=== PATIENT | female | born 1995 | race Hispanic/Latino ===

== ENCOUNTER → 2023-05-10 08:22 | Outpatient (CLI) | payer OTHER, SELFPAY ==
--- NOTE | 2023-05-10 08:24 | DI.US.S_ITS ---
PROCEDURE: US OB <= 14 WEEKS FETUS INDICATIONS: DATES OUTSIDE/PRIOR DATING DATA: Last menstrual period (LMP): 02/22/23. LMP-based estimated date of delivery (BRITTON): 11/29/23. First dating scan (date and location): 05/10/23, current study. Estimated date of delivery (BRITTON) from first dating scan: 12/01/23. TECHNIQUE: Real-time scanning was performed of the fetus and maternal pelvic organs, with image documentation. Endovaginal scanning was also performed to better visualize the fetus and maternal ovaries. COMPARISON: None. FINDINGS: An intrauterine is present including a single fetus with an average crown-rump length of 38 mm corresponding to a 10 week five day plus or minus seven day gestation. There is detectable cardiac activity in the fetus at a rate of 169 beats per minute. A normal yolk sac is present. There is an unfused amnion. There is no subchorionic hemorrhage. The maternal uterus is anteverted. The cervix is closed. There is no pathologic free pelvic fluid. The ovaries were not seen. IMPRESSION: Single living intrauterine with a gestational age by ultrasound of 10 weeks five days plus or minus seven days. This is in good agreement with the clinically assigned gestational age. We strive to produce accurate, complete, and clear reports of imaging services. To assist us in improving patient care, this report was composed using standard report templates and voice recognition software. Therefore, it may contain abnormal punctuation, insertions and/or omissions. Occasional wrong-word or sound-alike substitutions may occur. Though we review the report and make efforts to correct it, we do recommend that the report be read carefully in proper context to recognize any text inaccuracies. Dictated by: Stephanie Salas M.D. on 05/10/2023 at 15:49 Approved by: Stephanie Salas M.D. on 05/10/2023 at 15:51
== END ==
LOC: US 08:24
PROVIDERS: Referring Provider Obstetrics & Gynecology; Visit Provider Obstetrics & Gynecology
DX: Z34.91 Encounter for supervision of normal pregnancy, unspecified, first trimester (principal); Z3A.10 10 weeks gestation of pregnancy
CPT/HCPCS: 76801; 76817

== ENCOUNTER 2023-05-23 10:06 | Emergency (ER) | payer OTHER, SELFPAY ==
[2023-05-23] VITALS (13 sets, daily range): BP systolic 103–127; BP diastolic 63–79; PULSE 63–97; RESP 16–18; TEMP 36.8; O2SAT 94–100; BMI 43.9
--- NOTE | 2023-05-23 10:15 | ED.GENADULT ---
HPI - General Adult General Chief complaint: Syncope Stated complaint: syncope, 12wks Time Seen by Provider: 05/23/23 10:11 History of Present Illness HPI narrative: 27-year-old female with history of diverticulosis, syncope presents with syncopal episode. She states she is 12 weeks . She states during her last , she had episodes of syncope with extensive evaluation, including inpatient monitoring and what sounds like a Holter monitor without clear cause. She has been doing well recently in the setting of a new , though today on sitting up and standing, felt lightheaded. Her caught her when she passed out briefly, without trauma. She felt her heart beating quickly and had nausea during this but denies any other new symptoms. No chest pain, shortness of breath, head or neck or back or flank or abdominal pain, vaginal discharge or bleeding or other loss of fluids, red or black in stool, diarrhea or constipation, dysuria, hematuria, urinary frequency, fevers or chills. Her mother suddenly in middle age and she has not sure why, but she denies any known history of family dysrhythmias. No other new concerns currently. She currently feels comfortable. She states neurology told her that they did not think this was a neurological problem. Per chart review, she has a seen by Ob locally with Dr. Baum, with history of syncopal episodes evaluated by Neurology. She has history of migraines, hypothyroidism, eczema. She had a ultrasound May 10 showing intrauterine . Related Data Home Medications Medication Instructions Recorded Confirmed cholecalciferol (vitamin D3) 25 25 mcg PO DAILY 04/04/23 04/04/23 mcg (1,000 unit) capsule loratadine 10 mg tablet 10 mg PO DAILY 04/04/23 04/04/23 montelukast 10 mg tablet 10 mg PO DAILY 04/04/23 04/04/23 vit no.95-ferrous 1 tab PO DAILY 04/04/23 04/04/23 fumarate 28 mg-folic acid 800 mcg tablet ( Multivitamins) Allergies Allergy/AdvReac Type Severity Reaction Status Date / Time pineapple Allergy Intermediate Swelling Verified 05/23/23 10:27 of Lip/Tongue/Throat Review of Systems Review of Systems Narrative: Constitutional: no fever, no chills Eyes: no visual disturbance, no discharge Ears, Nose, Mouth, Throat: no rhinorrhea, no sore throat Cardiovascular: no chest pain, + palpitations Respiratory: no cough, no shortness of breath Gastrointestinal: no abdominal pain, no vomiting, no diarrhea Genitourinary: no dysuria, no hematuria Musculoskeletal: no back pain, no neck stiffness Skin: no rash, no wound Neurological: no focal weakness, no focal numbness Patient History Medical History (Updated 05/23/23 @ 12:31 by Pan Cabrales MD) Hypothyroidism Migraine without aura Eczema Environmental allergies Surgical History (Updated 04/04/23 @ 10:05 by Martha Zamarripa, MICHELE) [place] teeth extracted (~2021) Family History (Updated 04/04/23 @ 10:35 by Martha Zamarripa RN) Father Diabetes mellitus Mother Anemia Obesity Cardiac anomaly Grandmother Diabetes mellitus Sister Cerebral palsy Social History marital status: number of children: 1 household members: spouse and children lives independently: Yes caregiver/support person: Yes housing: [facility]) pets and animals: Yes (dog) education level: high school occupational status: employed (childcare) current occupational exposures/hazards: No special nicole needs: No travel history: recent ([place]) seatbelt use: always water heater temp set < 120 deg: Yes working smoke detector in home: Yes fire extinguisher in home: No carbon monox detector in home: Yes firearms in home: Yes firearms unloaded and locked: Yes do you feel safe at home: Yes Smoking Status: Former smoker second hand exposure: No alcohol intake: former (on rare occasion when not ) substance use type: does not use during the past year weight has: decreased > 10 lbs well-balanced diet: about half the time daily servings fruits/ve-4 caffeine: Yes (occasional te) Type(s) of exercise: aerobic and weight lifting Smoking Status: Never smoker Exam Narrative Exam Narrative: Const: no acute distress, non toxic appearing; calm, conversant, pleasant Eyes: PERRLA, EOMI ENT: mucous membranes moist; no goiter Neck: supple, non-tender Resp: no respiratory distress, clear to auscultation bilaterally Card: regular rate and rhythm, no murmurs Abd: non tender diffusely, no rigidity or rebound or guarding; small palpable uterine fundus Back: no T or L spine tenderness, no CVA tenderness bilaterally Extrem: no deformities, no swelling bilateral lower extremities, 2+ distal pulses all extremities Neuro: ANOx4. slab lifting supervisor 2-12 intact. No rotatory or vertical nystagmus. Normal tone all extremities. Sensation intact to light touch all extremities. No ankle clonus bilaterally. 5/5 motor strength all extremities. Normal FNF BUE; normal heel-self test BLE. No pronator drift. No dysarthria. No neglect. Grossly normal cognition. Skin: no rash, warm and dry Initial Vital Signs Initial Vital Signs: Vital Signs Pulse Rate 97 H 05/23/23 10:12 Pulse Oximetry 99 05/23/23 10:12 Course Course Course Narrative: This patient presents with history consistent with syncope that appears to be recurrent over time, in the setting of prior inpatient and neurologic evaluations per chart and patient. She is currently comfortable, fully neurovascularly intact with no symptoms. This sounds most consistent with orthostatic hypotension or vasovagal reaction, with cardiac dysrhythmia considered but seeming much less likely in the setting of her history and exam as above. She does however have a family history of potential sudden , accordingly, I do feel that regardless of workup today, she should obtain cardiology referral. Currently, she shows no evidence of stroke, intra-abdominal infection or bleeding, arrhythmia, infection, or any neurovascular deficits. I am nonetheless obtain EKG, CBC, CMP, TSH, troponin, urinalysis and will closely reassess. Note she has known IUP. EKG NSR without acute ischemia or immediately concerning interval prolongation. No WPW, Long QT, Brugada, HOCM. No recent for comparison. Note patient has no chest pain or shortness of breath, and this is in the setting of recurring history of prior syncope as well. CBC reassuring, no leukocytosis or anemia or thrombocytopenia. Urinalysis reassuring, no bacteria. Troponin within normal limits; we will trend this. Chemistry with borderline hyponatremia, reassuring renal function, reassuring LFTs, overall reassuring. TSH mildly low. I am recommending to patient she pursue further thyroid testing outpatient. She is not currently tachycardic and appears hemodynamically stable. Repeat EKG remains reassuring, no acute ischemia or immediately concerning interval prolongation, similar to prior. Repeat troponin reassuring. Patient remains stable. She appears appropriate for discharge with close follow up. Vasovagal or orthostatic etiology still possible. No current evidence of cardiac dysrhythmia or any other new symptoms. We discuss workup findings for follow up, including but not limited to TSH. She is able to follow up on this per her report. Repeat exam and vital signs reassuring. She is benign abdomen, no chest pain, no shortness of breath, no current palpitations. Questions answered. Plan reviewed. Patient discharged in stable condition. Orders Ordered: ED Orders 05/23/23 10:17 EKG-12 Lead Stat 05/23/23 10:35 Urinalysis and Microscopic Stat 05/23/23 10:40 CBC Auto Diff [Complete Blood Count AUTO DIFF] Stat CMP [Comprehensive Metabolic Panel] Stat TSH [Thyroid Stimulating Hormone] Stat Troponin I Stat 05/23/23 11:58 EKG-12 Lead Stat 05/23/23 12:56 Troponin I Stat Vital Signs Vital signs: Vital Signs - 8 hr 05/23/23 10:12 05/23/23 10:13 05/23/23 10:13 Temperature Pulse Rate 97 H 72 Respiratory Rate Blood Pressure 114/75 Pulse Oximetry 99 100 Oxygen Delivery Method 05/23/23 10:21 05/23/23 10:35 05/23/23 10:36 Temperature 98.3 F Pulse Rate 71 82 76 Respiratory Rate 18 Blood Pressure 114/75 Pulse Oximetry 100 100 100 Oxygen Delivery Method Room Air 05/23/23 10:36 05/23/23 11:00 05/23/23 11:00 Temperature Pulse Rate 77 Respiratory Rate Blood Pressure 123/73 127/79 Pulse Oximetry 99 Oxygen Delivery Method 05/23/23 11:33 05/23/23 11:35 05/23/23 11:35 Temperature Pulse Rate 87 72 Respiratory Rate Blood Pressure 107/64 Pulse Oximetry 94 100 Oxygen Delivery Method 05/23/23 12:00 05/23/23 12:00 05/23/23 12:30 Temperature Pulse Rate 71 73 Respiratory Rate Blood Pressure 110/70 Pulse Oximetry 100 100 Oxygen Delivery Method 05/23/23 12:38 05/23/23 12:38 05/23/23 13:00 Temperature Pulse Rate 73 Respiratory Rate Blood Pressure 103/63 107/68 Pulse Oximetry 100 Oxygen Delivery Method 05/23/23 13:00 05/23/23 13:30 05/23/23 13:30 Temperature Pulse Rate 77 63 Respiratory Rate 16 Blood Pressure 106/68 Pulse Oximetry 100 100 Oxygen Delivery Method Room Air Medical Decision Making Lab Data 05/23/23 10:40 05/23/23 10:40 Labs: Lab Results 05/23/23 05/23/23 05/23/23 Range/Units 10:35 10:40 12:56 WBC 8.9 (4.5-11.0) X10^3/uL RBC 4.50 (4.0-5.2) X10^6/uL Hgb 13.3 (12.0-16.0) g/dL Hct 38.7 (36-46) % MCV 85.9 (80-100) fL MCH 29.5 (26-34) PG MCHC 34.4 (30-36) % RDW 12.6 (11.6-14.8) % Plt Count 319 (150-400) X10^3/uL Neut % (Auto) 59.4 (50-75) % Lymph % (Auto) 25.7 (25-40) % Summers % (Auto) 12.7 (3-14) % Eos % (Auto) 1.2 L (2-4) % Baso % (Auto) 1.0 (0-2) % Neut # (Auto) 5300 (0903-6174) /uL Lymph # (Auto) 2300 (2612-2107) /uL Summers # (Auto) 1100 H (0-900) /uL Eos # (Auto) 100 (0-450) /uL Baso # (Auto) 100 (0-100) /uL Sodium 136 L (137-145) mmol/L Potassium 4.6 (3.4-5.1) mmol/L Chloride 107 (98-107) mmol/L Carbon Dioxide 23 (22-32) mmol/L BUN 7 (7-17) mg/dL Creatinine 0.45 L (0.52-1.04) mg/dL Estimated GFR > 60 (>60) mL/min BUN/Creatinine Ratio 15.6 (6-22) Glucose 85 (70-100) mg/dL Calcium 9.2 (8.4-10.2) mg/dL Total Bilirubin 0.9 (0.2-1.3) mg/dL AST 36 (14-36) IU/L ALT 11 (<35) IU/L Alkaline Phosphatase 46 (38-126) U/L Troponin I 0.016 0.015 (0.01-0.034) ng/mL Total Protein 8.5 H (6.3-8.2) g/dL Albumin 4.1 (3.5-5.0) g/dL Globulin 4.4 H (1.7-4.1) g/dL Albumin/Globulin Ratio 0.9 L (1.0-2.8) TSH 0.428 L (0.47-4.68) uIU/mL Urine Color Yellow Urine Appearance Clear Urine pH 5.5 (4.5-8.0) Ur Specific [place] 1.010 (1.000-1.035) Urine Protein Negative (Negative) Urine Glucose (UA) Negative (Negative) g/dL Urine Ketones Negative (NEGATIVE) Urine Occult Blood Negative (Negative) Urine Nitrate Negative (Negative) Urine Bilirubin Negative (NEGATIVE) Urine Urobilinogen 0.2 (0.2) E.U./dL Ur Leukocyte Esterase Negative (NEGATIVE) Urine RBC None seen (0-5/HPF) Urine WBC None seen (0-5/HPF) Ur Squamous Epith Cells None seen (0-5/HPF) Urine Bacteria None seen (None) Ur Culture Indicated? Cult not indicated Vol Urine Centrifuged 10ml (spun) Discharge Plan Departure Patient Disposition: Home Clinical Impression: Syncope Instructions: DI for Syncope in Adults (Fainting) Activity Restrictions/Additional Instructions: It was a pleasure taking care of you today. It is important to fully read and understand the below. Please ask us if you have any questions. Your testing here is overall reassuring. I do agree should follow up with both primary care and Cardiology. Please see a doctor within 3-5 days to be reassessed. Please follow up on your low TSH with your primary doctor. I am sending a cardiology referral as well as discussed. No tests or assessments are perfect, and your condition could change management expert time. If your symptoms change or worsen, it is very important you immediately seek medical care. If you have any new or worsening pain, lightheadedness or passing out, feeling your heart beating funny, shortness of breath, fever, vomiting, confusion, numbness, weakness, or anything else that concerns you, please immediately seek medical care. If you have been prescribed any medications: please read the drug package inserts on how to properly use the medication and any potential side effects. If you had labs (blood tests) or imaging (CT scan or x-rays) done during your visit: please follow up on the results of these with your primary care doctor, as discussed. In addition, please know the results we received today may be preliminary. Our usual practice is to follow up on tests within a few days of a patient's discharge from the Emergency Department and notify you of any changes. These may lead to changes to your treatment plan. However, the best way to obtain and interpret these test results is through your Primary Care Provider. If you need to update your contact information, please stop by the front end application developer and alert the Registration personnel before you leave the Emergency Department. Thank you for the opportunity to participate in your healthcare. We are always here and happy to see you in the future. Prescriptions: No Action loratadine 10 mg tablet 10 mg PO DAILY PNV cmb#95-ferrous fumarate-FA [ Multivitamins] 28 mg iron- 800 mcg tablet 1 tab PO DAILY cholecalciferol (vitamin D3) 25 mcg (1,000 unit) capsule 25 mcg PO DAILY montelukast 10 mg tablet 10 mg PO DAILY Referrals: Emilee Perrin DO [Physician] - (syncope work up in ER) Provider,Anisha JAFFE [Primary Care Provider] - Pan Cabrales MD [Emergency Provider] - Stand Alone Forms: Patient Portal/API, Work Release Note
[2023-05-23 11:04] LABS: Appearance Urine UA CLEAR; Bilirubin Urine UA NEGATIVE (NEGATIVE); Color Urine UA YELLOW; Glucose Urine UA NEGATIVE (Negative); Ketones Urine UA NEGATIVE (NEGATIVE); Leukocyte Esterase Urine UA NEGATIVE (NEGATIVE); Nitrite Urine UA NEGATIVE (Negative); Occult Blood Urine UA NEGATIVE (Negative); Protein Urine UA NEGATIVE (Negative); Urobilinogen Urine UA 0.2 E.U./dL (0.2)
[2023-05-23 11:04] LABS: Add Manual Diff / Slide Review NO; Basophils Absolute Auto 100 /uL (0-100); Eosinophils Absolute Auto 100 /uL (0-450); Eosinophils Percent Auto 1.2 % (2-4); Hematocrit 38.7 % (36-46); Hemoglobin 13.3 g/dL (12.0-16.0); Lymphocytes Absolute Auto 2300 /uL (1100-4500); Lymphocytes Percent Auto 25.7 % (25-40); Mean Corpuscular HGB Conc 34.4 % (30-36); Mean Corpuscular Hemoglobin 29.5 PG (26-34); Mean Corpuscular Volume 85.9 fL (80-100); Monocytes Absolute Auto 1100 /uL (0-900); Monocytes Percent Auto 12.7 % (3-14); Neutrophils Absolute Auto 5300 /uL (1500-7000); Neutrophils Percent Auto 59.4 % (50-75); Platelet Count 319 X10^3/uL (150-400); Red Cell Distribution Width 12.6 % (11.6-14.8); White Blood Cell Count 8.9 X10^3/uL (4.5-11.0)
[2023-05-23 11:05] LABS: Urine Volume 10mL (spun); pH Urine UA 5.5 (4.5-8.0)
[2023-05-23 11:08] LABS: Bacteria Urine None Seen; Culture Indicated Urine Cult Not Indicated; RBC Urine None Seen (0-5/HPF); Squamous Epithelial Cell Urine None Seen (0-5/HPF); WBC Urine None Seen (0-5/HPF)
[2023-05-23 11:24] LABS: Troponin I 0.016 ng/mL (0.01-0.034)
--- NOTE | 2023-05-23 11:26 | PC.NURSE ---
Patient is currently asymptomatic but reports history of syncopal episodes which correlate with going to the bathroom or needing to vomit or defecate, possibly linked to vasovagal issues.
[2023-05-23 11:54] LABS: Alanine Aminotransferase 11 IU/L (<35); Albumin 4.1 g/dL (3.5-5.0); Albumin Globulin Ratio 0.9 (1.0-2.8); Alkaline Phosphatase 46 U/L (38-126); Aspartate Aminotransferase 36 IU/L (14-36); BUN Creatinine Ratio 15.6 (6-22); Bilirubin Total 0.9 mg/dL (0.2-1.3); Blood Urea Nitrogen 7 mg/dL (7-17); Calcium 9.2 mg/dL (8.4-10.2); Carbon Dioxide 23 mmol/L (22-32); Chloride 107 mmol/L (98-107); Estimated Glomerular Filt Rate > 60 mL/min (>60); Globulin 4.4 g/dL (1.7-4.1); Glucose 85 mg/dL (70-100); HEMOLYSIS 121 (0-50); Potassium 4.6 mmol/L (3.4-5.1); Sodium 136 mmol/L (137-145); Total Protein 8.5 g/dL (6.3-8.2)
[2023-05-23 12:28] LABS: Thyroid Stimulating Hormone 0.428 uIU/mL (0.47-4.68)
[2023-05-23 13:38] LABS: Troponin I 0.015 ng/mL (0.01-0.034)
== END 2023-05-23 14:01 | disposition home or self-care (01) ==
PROVIDERS: Emergency Provider Emergency Medicine
DX: O26.91 Pregnancy related conditions, unspecified, first trimester (principal); R55 Syncope and collapse; R07.9 Chest pain, unspecified; Z3A.12 12 weeks gestation of pregnancy
CPT/HCPCS: 36415; 80053; 81001; 84443; 84484; 85025; 93005; 93010; 99284

== ENCOUNTER → 2023-06-01 11:06 | Outpatient (CLI) | payer OTHER, SELFPAY ==
[2023-06-01 11:48] LABS: Add Manual Diff / Slide Review NO; Basophils Absolute Auto 0 /uL (0-100); Basophils Percent Auto 0.4 % (0-2); Eosinophils Absolute Auto 100 /uL (0-450); Eosinophils Percent Auto 0.9 % (2-4); Hematocrit 35.4 % (36-46); Hemoglobin 12.3 g/dL (12.0-16.0); Lymphocytes Absolute Auto 2100 /uL (1100-4500); Lymphocytes Percent Auto 26.7 % (25-40); Mean Corpuscular HGB Conc 34.7 % (30-36); Mean Corpuscular Hemoglobin 29.4 PG (26-34); Mean Corpuscular Volume 84.8 fL (80-100); Monocytes Absolute Auto 800 /uL (0-900); Monocytes Percent Auto 10.2 % (3-14); Neutrophils Absolute Auto 4800 /uL (1500-7000); Neutrophils Percent Auto 61.8 % (50-75); Platelet Count 289 X10^3/uL (150-400); Red Blood Cell Count 4.17 X10^6/uL (4.0-5.2); Red Cell Distribution Width 12.9 % (11.6-14.8); White Blood Cell Count 7.7 X10^3/uL (4.5-11.0)
[2023-06-01 12:28] LABS: Free T4, Direct Thyroxine 1.06 ng/dL (0.78-2.19)
[2023-06-01 12:42] LABS: Thyroid Stimulating Hormone 0.372 uIU/mL (0.47-4.68)
[2023-06-02 19:59] LABS: HIV 1 & 2 Ab/Ag 4th Gen Combo NEGATIVE (NEGATIVE); Hep C Virus Ab w/Reflex Quant NEGATIVE s/c (NEGATIVE); Hepatitis B Surface Antigen NEGATIVE s/c (NEGATIVE); Rubella Antibody IgG 60.3 IU/mL (>15)
[2023-06-03 03:36] LABS: RPR Screen Non Reactive (Non Reactive)
[2023-06-03 09:47] LABS: Varicella IgG Antibody 308 index (Immune >165)
== END ==
PROVIDERS: Referring Provider Obstetrics & Gynecology; Visit Provider Obstetrics & Gynecology
DX: Z86.39 Personal history of other endocrine, nutritional and metabolic disease (principal); E03.9 Hypothyroidism, unspecified
CPT/HCPCS: 36415; 80055; 84439; 84443; 86787; 86803; 86850; 86900; 86901; 87086; 87389

== ENCOUNTER → 2023-06-07 15:03 | Outpatient (CLI) | payer OTHER, SELFPAY ==
[2023-06-07 20:00] LABS: Urine N gonorrhoeae NOT DETECTED
[2023-06-07 20:16] LABS: Urine Chlamydia NOT DETECTED
== END ==
PROVIDERS: Visit Provider Obstetrics & Gynecology
DX: Z34.82 Encounter for supervision of other normal pregnancy, second trimester (principal); R82.998 Other abnormal findings in urine; Z3A.15 15 weeks gestation of pregnancy
CPT/HCPCS: 87086; 87491; 87591

== ENCOUNTER → 2023-07-12 10:21 | Outpatient (CLI) | payer OTHER, SELFPAY ==
--- NOTE | 2023-07-12 10:22 | DI.US.S_ITS ---
PROCEDURE: US OB >= 14 WEEKS FETUS INDICATIONS: Anatomy Scan OUTSIDE/PRIOR DATING DATA: Last menstrual period (LMP): 02/22/2023 LMP-based estimated date of delivery (BRITTON): 11/29/2023 First dating scan (date and location): 05/10/2023 Estimated date of delivery (BRITTON) from first dating scan: 12/01/2023 The calculations are made using the clinical BRITTON of 11/29/2023 TECHNIQUE: Real-time scanning was performed of the fetus, with image documentation and biometric measurements. Endovaginal scanning: Not performed COMPARISON: [facility], OB <= 14 WEEKS FETUS, 05/10/2023, 8:47. FINDINGS: General: A single living intrauterine gestation is present. Presentation: Breech Placenta: Placental position is anterior, without previa. Amniotic fluid index: 13.5 cm, normal range is 5-24 cm. Single deepest vertical pocket is 4.3 cm. heart rate: 157 beats per minute. Maternal cervical canal: 5.2 cm long. Normal lower limit is 2.5 cm. biometrics: Biparietal diameter: 4.5 cm, 19 weeks 3 days Head circumference: 16.3 cm, 19 weeks 0 days Abdominal circumference: 13.3 cm, 18 weeks 6 days Femur length: 2.8 cm, 18 weeks 5 days Clinically estimated gestational age: 20 weeks 0 days Composite gestational age from present scan: 19 weeks 0 days Estimated weight and percentile: 258 g, 4th percentile Anatomic survey: Neuro: Ventricles are non-dilated at less than 10 mm. Cisterna magna is normal at 3-11 mm. Cerebellum is normal in size and morphology. Nuchal skin fold: Not evaluated. Face: Facial profile appears normal. Nose/lips not visualized. Spine: Spine is not optimally visualized. Heart: heart and ventricular outflow tracts are not well visualized. Diaphragm: Diaphragm is intact. Stomach: Left-sided stomach is present. Kidneys: No hydronephrosis. Normal is less than 5 mm in 2nd trimester, less than 7 mm in 3rd trimester. Cord: 3-vessel cord has orthotopic insertion. Bladder: Normal in size. Extremities: All 4 extremities identified. IMPRESSION: 1. Single live intrauterine . 2. Estimated weight is at the 4th percentile for clinical gestational age. Recommend clinical correlation and follow-up to exclude growth restriction. 3. Limited visualization of the posterior fossa, nuchal fold, nose/lips, spine, heart and ventricular outflow tracts. Recommend follow-up exam. 4. anatomic survey is otherwise within normal limits. Approved by: Christofer Cancino M.D. on 07/12/2023 at 14:51
== END ==
PROVIDERS: Referring Provider Obstetrics & Gynecology; Visit Provider Obstetrics & Gynecology
DX: Z34.82 Encounter for supervision of other normal pregnancy, second trimester (principal); Z3A.19 19 weeks gestation of pregnancy
CPT/HCPCS: 76811

== ENCOUNTER → 2023-08-02 10:11 | Outpatient (CLI) | payer OTHER, SELFPAY ==
--- NOTE | 2023-08-02 10:12 | DI.US.S_ITS ---
PROCEDURE: US OB FOLLOW UP INDICATIONS: not able to see all structures on first scan OUTSIDE/PRIOR DATING DATA: Last menstrual period (LMP): February 22, 2023. LMP-based estimated date of delivery (BRITTON): November 29, 2023. First dating scan (date and location): May 10, 2023. Estimated date of delivery (BRITTON) from first dating scan: December 01, 2023. The calculations are made using the ultrasound BRITTON of November 29, 2023. TECHNIQUE: Real-time scanning was performed of the fetus, with image documentation and biometric measurements. Endovaginal scanning: Not performed COMPARISON: [facility], , OB >= 14 WEEKS FETUS, 07/12/2023, 10:32. FINDINGS: General: A single living intrauterine gestation is present. Presentation: Vertex. Placenta: Placental position is anterior , without previa. Amniotic fluid index: 16.8 cm, normal range is 5-24 cm. Single deepest vertical pocket is 5.1 cm. heart rate: Not recorded Maternal cervical canal: 3.6 cm long. Normal lower limit is 2.5 cm. biometrics: Biparietal diameter: 5.4 cm, 22 weeks, 3 days Head circumference: 19.6 cm, 21 weeks, 6 days Abdominal circumference: 17.1 cm, 22 weeks, 1 day Femur length: 4.0 cm, 22 weeks, 6 days Clinically estimated gestational age: 22 weeks 5 days Composite gestational age from present scan: 22 weeks 2 days Estimated weight and percentile: 500 g, 28% Anatomic survey: Face: There is a questionable defect within the upper lip suggesting the presence of a cleft palate. This is incompletely characterized. Heart: 4-chambered heart is present, the outflow tracts were not visualized. Stomach: Left-sided stomach is present. Cord: 3 vessel cord has orthotopic insertion. IMPRESSION: 1. Limited study. There is a questionable defect within the upper lip. Cleft palate cannot be excluded and further characterization is warranted. 2. Poor characterization of the ventricular outflow tracks. 3. Composite gestational age of 22 weeks, 2 days which is concordant with dates by initial scan. We strive to produce accurate, complete, and clear reports of imaging services. To assist us in improving patient care, this report was composed using standard report templates and voice recognition software. Therefore, it may contain abnormal punctuation, insertions and/or omissions. Occasional wrong-word or sound-alike substitutions may occur. Though we review the report and make efforts to correct it, we do recommend that the report be read carefully in proper context to recognize any text inaccuracies. Dictated by: Odessa Saleh M.D. on 08/10/2023 at 8:44 Approved by: Odessa Saleh M.D. on 08/10/2023 at 8:57
== END ==
LOC: US 10:12
PROVIDERS: Referring Provider Obstetrics & Gynecology; Visit Provider Obstetrics & Gynecology
DX: Z34.82 Encounter for supervision of other normal pregnancy, second trimester (principal); Z3A.22 22 weeks gestation of pregnancy
CPT/HCPCS: 76816

== ENCOUNTER → 2023-08-23 09:03 | Outpatient (CLI) | payer OTHER, SELFPAY ==
[2023-08-23 11:17] LABS: Hematocrit 34.3 % (36-46); Hemoglobin 11.7 g/dL (12.0-16.0)
[2023-08-23 11:39] LABS: GTT (PREG) 1 Hour PP 50gm Dose 151 mg/dL (76-139)
== END ==
PROVIDERS: Referring Provider Obstetrics & Gynecology; Visit Provider Obstetrics & Gynecology
DX: Z34.82 Encounter for supervision of other normal pregnancy, second trimester (principal); Z3A.26 26 weeks gestation of pregnancy
CPT/HCPCS: 82950; 85014; 85018

== ENCOUNTER → 2023-09-07 07:48 | Outpatient (CLI) | payer OTHER, SELFPAY ==
[2023-09-07 10:29] LABS: Glucose Fasting Gestational 107 mg/dL (76-95)
[2023-09-07 10:54] LABS: Glucose 1 Hour Gest 205 mg/dL (76-180)
[2023-09-07 11:31] LABS: Glucose Tol Interp,Gestational INTERPRETATION
[2023-09-07 12:10] LABS: Glucose 2 Hour Gest 151 mg/dL (76-155)
[2023-09-07 12:31] LABS: Glucose 3 Hour Gest 167 mg/dL (76-140)
== END ==
PROVIDERS: Referring Provider Obstetrics & Gynecology; Visit Provider Obstetrics & Gynecology
DX: Z34.80 Encounter for supervision of other normal pregnancy, unspecified trimester (principal); R73.09 Other abnormal glucose
CPT/HCPCS: 36415; 82951; 82952

== ENCOUNTER → 2023-09-08 09:30 | Outpatient (CLI) | payer OTHER, SELFPAY ==
--- NOTE | 2023-09-08 11:18 | DIAB.GDA ---
Initial Gestational Diabetes Assessment Name: Jeane Encarnacion Date: 09/08/23 Time: 930-11a Dx: Gestational Diabetes Provider: Bautista BRITTON: 11/29/23 Weeks: 28 Jeane presents for initial DM visit. PMH of GDM briefly before term vaginal of daughter 6 years ago per report. Daughter born 6.9#. Reports FH of DM with father and maternal grandmother. Given elevated FBG in OGTT, may benefit from insulin therapy, however her FBG this morning was 88mg/dl. Reports some food insecurity. Just had first WIC visit recently. Next WIC check in October. Some iron deficiency per labs 08/23/23. Has been working on eating more veggies and red meat. Veggies have not been desirable during this per report. Reports h/o diverticular disease. Has questions about diet recs for this. Reports BFing with first child for a couple weeks. States she did not know to wake in the night regularly to nurse and her milk dried up. Wanting to see prior to delivery. Drinks juice with iron supplement. Reports sweet tooth recently, with baking and buying cookies. Diet Recall: 9a: bowl cereal with milk OR waffle with avocado and cherries 12p: 1c rice and chicken sn: nothing or fruit 6p: skip if full OR 1c rice, chicken, veggies 8p: oreos with milk OR 3 lainey chip cookies water: 30oz x 2.5-3, 4-6oz juice with iron supplement Anthropometrics: Ht: 61 Wt: 231# 08/31/23 at OB office Prepregnancy wt: 236# Physical Activity: Reports reduced activity since started due to nausea in first trimester and busy schedule with work in second trimester. Prior to was more active with gym. states she has been trying to walk dog 20 min per day and walks daughter to school daily. Self-Monitoring Blood Glucose: Just started checking BG. Good technique displayed in clinic today. FBG this morning remarkably lower than labs yesterday of 107mg/dl. After breakfast of 15g CHO in range. Last night 1 hour elevated after 20-30g CHO potato with dinner. Date Pre Post Pre Post Pre Post HS 09/06 151 09/07 88 122 Diabetes Medications: None Pertinent Labs: Screen 151 mg/dl; OGTT: 107 H, 205 H, 151, 167 H Nutrition Rx: Carbohydrates: Meal: 45-g lunch and dinner; 30g breakfast Snack: 15-30g Nutrition Diagnosis: Altered nutrition related lab value r/t GDM dx aeb recent OGTT Excessive CHO r/t newly dx GDM and nutrition related knowledge deficit aeb diet recall and OGTT Inconsistent protein intake r/t nutrition knowledge deficit aeb diet recall Intervention: This participant was very receptive. Provided appropriate educational handouts. Discussed the following topics: GDM pathophysiology and impact of hyperglycemia on mom and baby Risk for T2DM for mom and baby in the future Ways to reduce risk T2DM Plate Method, meal timing, carb counting, pairing macronutrients and spreading out CHO for better BG management Blood glucose goals (FBG: <95 and 1 hour <140 mg/dL); importance of checking 4x per day (FBG and pc) Impact of macronutrients on blood glucose Recommended servings for carbohydrates at meals and snacks Brainstormed appropriate meal plan based on her food preferences Insulin demo, in case she needs to start insulin Role of insulin in GDM management Food insecurity and ways to choose affordable foods Label reading Role of physical activity and following provider guidelines for safety Goals: trust evaluation supervisor cheese or nuts when able Check BG 4 x per day Pair CHO and pro at meals/snacks Try to eat q 3-4 hours Follow-up: BRISSA SWARTZ follow-up in one week via messaging BG and two weeks in per son 1:1 visit Tiny Shabazz RDN, SHERIDAN Certified Diabetes Care and Pit Furnace Melter T: [phone] F: [phone] [email or web address] Thank you for this referral
== END ==
PROVIDERS: Referring Provider Obstetrics & Gynecology
DX: O24.419 Gestational diabetes mellitus in pregnancy, unspecified control (principal); Z3A.28 28 weeks gestation of pregnancy; Z71.3 Dietary counseling and surveillance
CPT/HCPCS: 97802

== ENCOUNTER → 2023-09-13 16:56 | Outpatient (CLI) | payer OTHER, SELFPAY ==
--- NOTE | 2023-09-13 17:15 | DIAB.GDFU ---
Follow-up Gestational Diabetes Assessment Name: Jeane Encarnacion Date: 09/13/23 Time: 5-6p Dx: Gestational Diabetes Provider: Bautista BRITTON: 11/29/23 Weeks: 29 Iris presents for GDM f/u. Reports following a very low CHO diet due to elevations with moderate CHO intake. States she cannot eat more than 20-30g per sitting without having an elevation. Endorses 3# weight loss due to diet changes. States she is feeling sick of low carb options,ie avocado, eggs. Brought her bg log and food journal today. BG seems quite variable to food she is eating. Choosing low CHO tortillas, but had a high BG. Chose 1/2c rice and BG was in 130s. May benefit from medication management, though again BG are so variable. Seems like insulin therapy may help her eat more adequately. Self-Monitoring Blood Glucose: States she is able to keep most numbers in range with a very low CHO diet. 2/6 elevated FBG. 2/6 elevated post breakfast. 1/6 elevated post lunch. 2/6 elevated post dinner. Concerns for such a low CHO diet during . Date Pre Post Pre Post Pre Post HS 09/06 151 09/07 88 122 137 182 09/08 104 161 104 98 09/09 97 107 97 121 09/10 78 105 121 129 09/11 88 113 135 95 09/12 88 148 159 Diabetes Medications: None Pertinent Labs: Screen 151 mg/dl; OGTT: 107 H, 205 H, 151, 167 H Intervention: This participant was very receptive. Provided appropriate educational handouts. Discussed the following topics: Recent blood sugar results and impact of food and hormones Review of macronutrient recommendations during Reviewed CGM use and equipment Discussed when to check blood sugars using finger stick Provided education for self-administration of CGM placement Educated patient on alarm settings Discussed equipment disposal Goals: code enforcement supervisor cheese or nuts when able- met Check BG 4 x per day- met Pair CHO and pro at meals/snacks- met Try to eat q 3-4 hours - met Wear CGM x 10 days- new Follow-up: BRISSA SWARTZ follow-up in one week Tiny Shabazz RDN, SHERIDAN Certified Diabetes Care and Certification And Selection Specialist T: [phone] F: [phone] [email or web address] Thank you for this referral
== END ==
PROVIDERS: Referring Provider Obstetrics & Gynecology
DX: O24.419 Gestational diabetes mellitus in pregnancy, unspecified control (principal); Z3A.29 29 weeks gestation of pregnancy; Z71.3 Dietary counseling and surveillance
CPT/HCPCS: G0108

== ENCOUNTER → 2023-09-22 08:24 | Outpatient (CLI) | payer OTHER, SELFPAY ==
--- NOTE | 2023-09-22 08:28 | DIAB.GDFU ---
Follow-up Gestational Diabetes Assessment Name: Jeane Encarnacion Date: 09/22/23 Time: 900-060a Dx: Gestational Diabetes Provider: Bautista BRITTON: 11/29/23 Weeks: 30 Jeane presents for GDM f/u. Still on very low CHO diet for , not meeting BOILER INSTALLER of 175g per day. Wearing CGM. Has had a few elevations postprandial, mostly r/t eating out sushi or wings. Started Metformin yesterday with rx for 500mg BID. Plan to increase prn per OB notes, then insulin if needed. Most meals <30g CHO, which keeps her BG in range. Some meals of 40g seem to work and would be more ideal for overall nutrition status. Weight gain going well, 1# over 3 weeks per last OB visit. Today she brought her BG log book and food journal for review. Anthropometrics: Ht: 61 Wt: 232# 09/21/23 at OB office Prepregnancy wt: 236# Physical Activity: Limited activity, but has been doing some body resistance exercises at home 2-3x per week. Self-Monitoring Blood Glucose: All FBG in goal. After meal readings with some elevations, mostly r/t eating out. Though 1 hour was 146mg/dl after sushi, CGM report indicates a continued elevation up to 181mg/dl after this meal. Only two elevated readings postprandial due to mostly <30g CHO meals. Date Pre Post Pre Post Pre Post HS 09/15 89 134 97 09/16 88 146 sushi 132 wings eating out 09/17 89 120 104 7 83 128 119 117 09/19 90 113 117 151 bday celebration for mother 09/20 95 127 108 110 09/21 83 134 Diabetes Medications: 500mg Metformin BID Pertinent Labs: Screen 151 mg/dl; OGTT: 107 H, 205 H, 151, 167 H Nutrition Rx: Carbohydrates: Meal: 45-g lunch and dinner; 30g breakfast Snack: 15-30g Nutrition Diagnosis: Altered nutrition related lab value r/t GDM dx aeb recent OGTT Inadequate CHO intake for r/t keeping BG in goal with lower CHO diet aeb pt report, BG log/CGM report, and food journal. Intervention: This participant was very receptive. Provided appropriate educational handouts. Discussed the following topics: Recent blood sugar results and impact of food and hormones Metformin precautions: take BID with food Review of macronutrient recommendations during Meal planning Goals: Wear CGM x 10 days- met Try 45g CHO at lunch and 30g at HS snack- new Try adding cauliflower rice to rice for satiety- new Follow-up: BRISSA SWARTZ follow-up in two weeks 1:1 and 1 week for BG check via messaging Tiny Shabazz RDN, SHERIDAN Certified Diabetes Care and Outside Salesman T: [phone] F: [phone] [email or web address] Thank you for this referral
== END ==
PROVIDERS: Referring Provider Obstetrics & Gynecology
DX: O24.414 Gestational diabetes mellitus in pregnancy, insulin controlled (principal); Z3A.30 30 weeks gestation of pregnancy; Z71.3 Dietary counseling and surveillance
CPT/HCPCS: 97803

== ENCOUNTER → 2023-10-05 13:32 | Outpatient (CLI) | payer OTHER, SELFPAY ==
--- NOTE | 2023-10-05 13:34 | DI.US.S_ITS ---
PROCEDURE: US OB LIMITED INDICATIONS: GESTATIONAL DIABETES, S>D OUTSIDE/PRIOR DATING DATA: Last menstrual period (LMP): 02/22/2023. LMP-based estimated date of delivery (BRITTON): 11/29/2023. First dating scan (date and location): 05/10/2023. Estimated date of delivery (BRITTON) from first dating scan: 12/01/2023. The calculations are made using the clinical BRITTON of 11/29/2023. TECHNIQUE: Real-time scanning was performed of the fetus, with image documentation and biometric measurements. Endovaginal scanning: Not performed COMPARISON: [facility], OB FOLLOW UP, 08/02/2023, 10:25. FINDINGS: General: A single living intrauterine gestation is present. Presentation: Transverse. Placenta: Placental position is anterior , without previa. Amniotic fluid index: 18.1 cm, normal range is 5-24 cm. Single deepest vertical pocket is 7.6 cm. heart rate: 145 beats per minute. Maternal cervical canal: 5.5 cm long. Normal lower limit is 2.5 cm. biometrics: Biparietal diameter: 8.0 cm, 32 weeks 0 days Head circumference: 29.4 cm, 32 weeks 3 days Abdominal circumference: 27.5 cm, 31 weeks 4 days Femur length: 6.1 cm, 31 weeks 4 days Clinically estimated gestational age: 32 weeks 1 day Composite gestational age from present scan: 31 weeks 6 days Estimated weight and percentile: 1818 g, 26% Other: Four-chamber heart and outflow tracts appear within normal limits. Previously described possible cleft palate is less conspicuous than prior. IMPRESSION: 1. Single live intrauterine consistent with 31 weeks and 6 days. growth is within normal limits. 2. Four-chamber heart and outflow tracts are within normal limits. Previously described question defect in the upper lip is less conspicuous than prior and favored to be within normal limits. We strive to produce accurate, complete, and clear reports of imaging services. To assist us in improving patient care, this report was composed using standard report templates and voice recognition software. Therefore, it may contain abnormal punctuation, insertions and/or omissions. Occasional wrong-word or sound-alike substitutions may occur. Though we review the report and make efforts to correct it, we do recommend that the report be read carefully in proper context to recognize any text inaccuracies. Dictated by: Kye Price M.D. on 10/05/2023 at 18:39 Approved by: Kye Price M.D. on 10/05/2023 at 18:45
== END ==
PROVIDERS: Referring Provider Family Medicine; Visit Provider Family Medicine
DX: O24.415 Gestational diabetes mellitus in pregnancy, controlled by oral hypoglycemic drugs (principal); O99.891 Other specified diseases and conditions complicating pregnancy; R82.998 Other abnormal findings in urine; Z3A.32 32 weeks gestation of pregnancy; Z71.3 Dietary counseling and surveillance
CPT/HCPCS: 76815; 87086; 97803

== ENCOUNTER → 2023-10-05 14:57 | Outpatient (CLI) | payer OTHER, SELFPAY | PROVIDERS: Visit Provider Obstetrics & Gynecology | DX: R82.998 Other abnormal findings in urine (principal) | CPT/HCPCS: 87086 ==

== ENCOUNTER → 2023-10-05 15:01 | Outpatient (CLI) | payer OTHER, SELFPAY ==
--- NOTE | 2023-10-05 15:09 | DIAB.GDFU ---
Addendum entered by Tiny Shabazz 10/18/23 16:42: Jeane called today inquiring about hypoglycemia s/s. Had a feeling of faintness this morning and called OB nurse number, who rec'd checking BG and tx with juice prn. Jeane is not currently on insulin, though is on Metformin and reports a time of 78mg/dl after protein smoothie. Encouraged adequate intake. Reviewed Rule of 15 for lows, though also discussed low risk of hypo with current dm medications. Encouraged checking BG when feeling these symptoms and treating prn. Has OB visit tomorrow per report and will discuss further at that time. RD f/u 10/24. Original Note: Follow-up Gestational Diabetes Assessment Name: Jeane Encarnacion Date: 10/05/23 Time: 3-345p Dx: Gestational Diabetes BRITTON: 11/29/23 Weeks: 32 Iris presents for GDM f/u. Has been looking up nutrition info online for CHO content. Tried ww carb smart instead of regular carb smart. Tried chickpea pasta for mac and cheese. Having some early satiety lately. Sometimes eats low CHO ice cream for HS snack with nuts Diet recall: 10a: zucchini/carrot muffin, blue delong oats (20g CHO) with protein shake or milk OR lower CHO bread x 2 and protein 12-1230: turkey, veggies, rice x 1/2c (usually 20-30g, sometimes 45g CHO) 4p: protein, veggies, carb x 1/2c or small potato 9-10p: cheese with nuts OR salami OR 1 small cookie with nuts 75oz water + sparkling water Reports BF x 2 weeks with daughter due to loss of milk dried up. Anthropometrics: Ht: 61 Wt: 230# 10/04 at OB office 232# 09/21/23 at OB office Prepregnancy wt: 236# Physical Activity: Body resistance exercises at home 2-3x per week. Plans for morning walk. Self-Monitoring Blood Glucose: All FBG in goal. All recent pc readings in goal, some missed meals resulting in less readings. Date Pre Post Pre Post Pre Post notes 09/28 91 136 110 105 09/29 89 100 109 88 09/30 89 110 104 10/01 91 129 128 10/02 96 140 98 112 10/03 82 133 some nausea so only snacks after breakfast 10/04 83 131 106 Diabetes Medications: 500mg Metformin BID Pertinent Labs: Screen 151 mg/dl; OGTT: 107 H, 205 H, 151, 167 H Nutrition Rx: Carbohydrates: Meal: 45-g lunch and dinner; 30g breakfast Snack: 15-30g Nutrition Diagnosis: Altered nutrition related lab value r/t GDM dx aeb recent OGTT Inadequate CHO intake for r/t keeping BG in goal with lower CHO diet aeb pt report, BG log/CGM report, and food journal. - improved Physical inactivity r/t stage of change and warmer weather aeb pt report- new Intervention: This participant was very receptive. Provided appropriate educational handouts. Discussed the following topics: Recent blood sugar results and impact of food and hormones Strategies for adding complex carbs with pro to diet Physical activity progress and plan Brief discussion and benefits Provided resource at Goals: Try 45g CHO at lunch and 30g at HS snack- in progress Try adding cauliflower rice to rice for satiety- d/c -- doesn't sound good Try 3/4c rice with meals- new Try adding fruit to HS snack- new Add a morning walk - new Follow-up: BRISSA SWARTZ follow-up in one week via messaging and three weeks 1:1 for final visit Tiny Shabazz RDN, SHERIDAN Certified Diabetes Care and Concrete Panel Installer T: [phone] F: [phone] [email or web address] Thank you for this referral
== END ==
DX: O24.415 Gestational diabetes mellitus in pregnancy, controlled by oral hypoglycemic drugs (principal); Z3A.32 32 weeks gestation of pregnancy; Z71.3 Dietary counseling and surveillance
CPT/HCPCS: 97803

== ENCOUNTER 2023-10-19 11:44 | Outpatient (CLI) | payer OTHER, SELFPAY ==
--- NOTE | 2023-10-19 12:26 | P.TNLD_ITS ---
Visit Information Visit Information Date of evaluation: 10/19/23 Primary OB Provider: Janet Barriga Comments/Additional reasons for admission: 27yo at 34w1d here for scheduled NST for GDMA2. No vaginal bleeding, LOF, contractions. [facility] Medical History (Updated 09/23/23 @ 12:44 by Robin Baum MD) Allergies Anxiety Hypothyroidism Migraine without aura Eczema Environmental allergies Surgical History (Updated 04/04/23 @ 10:05 by Martha Zamarripa, RN) [place] teeth extracted (~2021) Family History (Updated 04/04/23 @ 10:35 by Martha Zamarripa, RN) Father Diabetes mellitus Mother Anemia Obesity Cardiac anomaly Grandmother Diabetes mellitus Sister Cerebral palsy Social History marital status: number of children: 1 household members: spouse and children lives independently: Yes caregiver/support person: Yes housing: condominium pets and animals: Yes (dog) education level: high school occupational status: employed current occupational exposures/hazards: No special nicole needs: No travel history: recent seatbelt use: always water heater temp set < 120 deg: Yes working smoke detector in home: Yes fire extinguisher in home: No carbon monox detector in home: Yes firearms in home: Yes firearms unloaded and locked: Yes do you feel safe at home: Yes Smoking Status: Former smoker second hand exposure: No alcohol intake: former substance use type: does not use during the past year weight has: decreased > 10 lbs well-balanced diet: about half the time daily servings fruits/ve-4 caffeine: Yes (occasional te) Type(s) of exercise: aerobic and weight lifting Evaluation Evaluation Baseline heart rate: 140 Variability: Moderate (11-25) monitor accelerations: Present Monitor Decelerations: Absent Diagnosis, Plan/Disposition Final Diagnosis (1) Gestational diabetes mellitus: Status: Acute Plan/Disposition Plan: 27yo at 34w1d here for scheduled NST for GDMA2. NST reactive. Continue testing. Stable for d/c home. OB Disposition: home
== END 2023-10-19 12:28 | disposition home or self-care (01) ==
LOC: OB 10-24 09:06
PROVIDERS: Referring Provider Obstetrics & Gynecology; Visit Provider Obstetrics & Gynecology
DX: O24.419 Gestational diabetes mellitus in pregnancy, unspecified control (principal); Z3A.34 34 weeks gestation of pregnancy
CPT/HCPCS: 59025; G0378; G0379

== ENCOUNTER 2023-10-25 14:55 | Outpatient (CLI) | payer OTHER, SELFPAY | END 2023-10-25 16:22 | disposition home or self-care (01) | LOC: LABOR 15:32 → OB 10-27 12:32 | PROVIDERS: Referring Provider Obstetrics & Gynecology; Visit Provider Obstetrics & Gynecology | DX: Z34.83 Encounter for supervision of other normal pregnancy, third trimester (principal); Z3A.35 35 weeks gestation of pregnancy | CPT/HCPCS: 59025; G0378; G0379 ==

== ENCOUNTER → 2023-10-28 11:03 | Outpatient (CLI) | payer OTHER, SELFPAY ==
--- NOTE | 2023-10-28 11:09 | DIAB.GDFU ---
Follow-up Gestational Diabetes Assessment Name: Jeane Encarnacion Date: 10/28/23 Time:357 Dx: Gestational Diabetes Provider: Janel BRITTON: 11/29/23 Weeks: 35 Iris presents for GDM f/u. Higher CHO at breakfast at times, resulting in higher after postprandial breakfast numbers at times, but reports improved BG with 30g CHO and protein. Diet recall: 0-11a: zucchini/carrot muffin, blue delong oats (20g CHO) with protein shake or milk OR sausage with egg and 2 tortillas (30g) 1-2p: Soup with noodles, eggs, veggies (40g CHO) OR leftovers salad rice and beans 3/4c 5p: protein pasta with broccoli and chicken 3/4c portion OR soup with noodles, egg, veggies OR salad with rice, beans, ground turkey 9-10p: nothing OR nuts and fruit OR ice cream 75oz water + sparkling water, occasional sf soda Reports BF x 2 weeks with daughter due to loss of milk dried up. Plans to try again. Sees at [facility] clinic. Reports recommended expression of colostrum to assist with hypoglycemia at . States OB advised against this noting sanitation and storage concerns. She is feeling confused about this. Anthropometrics: Ht: 61 Wt: 229# at OB 10/25/23 230# 10/04 at OB office 232# 09/21/23 at OB office Prepregnancy wt: 236# Physical Activity: Walking after each meal 20 mins. Self-Monitoring Blood Glucose: Most FBG in goal, one elevated. 4/6 elevated breakfast readings. All lunch and dinner readings in goal. Checks FBG and 1 hour. Date Pre Post Pre Post Pre Post notes 10/21 85 141 104 97 8/4 96 146 124 128 8/5 87 153 129 94 8/6 79 140 129 100 8/7 90 117 102 127 8/8 85 154 119 107 8/9 80 Diabetes Medications: 500mg Metformin BID Pertinent Labs: Screen 151 mg/dl; OGTT: 107 H, 205 H, 151, 167 H Nutrition Rx: Carbohydrates: Meal: 45-g lunch and dinner; 30g breakfast Snack: 15-30g Nutrition Diagnosis: Altered nutrition related lab value r/t GDM dx aeb recent OGTT Excessive CHO intake r/t trial of new breakfasts aeb pt report - new Physical inactivity r/t stage of change and warmer weather aeb pt report- improved Intervention: This participant was very receptive. Provided appropriate educational handouts. Discussed the following topics: Recent blood sugar results and impact of food and hormones Review of macronutrient recommendations during Encouraged 30g breakfast with protein to reduce elevations Benefits, resources, and nutrition for recommendations for nutrition and physical activity recommendations for T2DM risk reduction OGTT at 6-12 weeks Checking blood sugars twice per week (goal: fasting <100 mg/dL and 2 hour pc <140 mg/dL) until 6 week check-up HgA1c q 1-3 years. Goals: Try 3/4c rice with meals- met Try adding fruit to HS snack- met Add a morning walk - met Keep breakfast to 30g- new Follow T2DM risk reduction recs- new Follow-up: BRISSA SWARTZ follow-up prn. Tiny Shabazz RDN, SHERIDAN Certified Diabetes Care and Regional Maintenance Manager T: [phone] F: [phone] [email or web address] Thank you for this referral
== END ==
PROVIDERS: Referring Provider Obstetrics & Gynecology
DX: O24.415 Gestational diabetes mellitus in pregnancy, controlled by oral hypoglycemic drugs (principal); Z3A.35 35 weeks gestation of pregnancy; Z71.3 Dietary counseling and surveillance
CPT/HCPCS: 97803

== ENCOUNTER → 2023-11-01 10:56 | Outpatient (CLI) | payer OTHER, SELFPAY ==
[2023-11-02 11:59] LABS: Strep Grp B PCR NEG for Grp B Strep
== END ==
PROVIDERS: Visit Provider Obstetrics & Gynecology
DX: Z34.83 Encounter for supervision of other normal pregnancy, third trimester (principal); Z3A.36 36 weeks gestation of pregnancy
CPT/HCPCS: 87653

== ENCOUNTER 2023-11-01 11:54 | Observation (INO) | payer OTHER, SELFPAY | END 2023-11-01 12:46 | disposition home or self-care (01) | PROVIDERS: Admitting Provider Obstetrics & Gynecology; Referring Provider Obstetrics & Gynecology; Visit Provider Obstetrics & Gynecology | DX: O24.415 Gestational diabetes mellitus in pregnancy, controlled by oral hypoglycemic drugs (principal); Z3A.35 35 weeks gestation of pregnancy | CPT/HCPCS: 59025; 87653; G0378; G0379 ==

== ENCOUNTER 2023-11-08 10:50 | Outpatient (CLI) | payer OTHER, SELFPAY | END 2023-11-08 11:45 | disposition home or self-care (01) | LOC: LABOR 11:37 → OB 11-10 06:24 | PROVIDERS: Referring Provider Obstetrics & Gynecology; Visit Provider Obstetrics & Gynecology | DX: O24.419 Gestational diabetes mellitus in pregnancy, unspecified control (principal); Z3A.36 36 weeks gestation of pregnancy | CPT/HCPCS: 59025; 76815; G0378; G0379 ==

== ENCOUNTER → 2023-11-08 15:21 | Outpatient (CLI) | payer OTHER, SELFPAY ==
--- NOTE | 2023-11-08 15:22 | DI.US.S_ITS ---
PROCEDURE: US OB LIMITED INDICATIONS: GESTATIONAL DIABETES - GROWTH OUTSIDE/PRIOR DATING DATA: Last menstrual period (LMP): 02/22/23. LMP-based estimated date of delivery (BRITTON): 11/29/23. First dating scan (date and location): 05/10/23. Estimated date of delivery (BRITTON) from first dating scan: 12/01/23. The calculations are made using the above BRITTON. TECHNIQUE: Real-time scanning was performed of the fetus, with image documentation. Endovaginal scanning: Not needed COMPARISON: [facility], OB LIMITED, 10/05/2023, 13:44. FINDINGS: A single living intrauterine gestation is present. Presentation: Vertex. Placenta: Placental position is anterior, without previa. Amniotic fluid index: 15.2 cm, normal range is 5-24 cm. Single deepest vertical pocket is 4.5 cm. heart rate: 132 beats per minute. Maternal cervical canal: Not well seen due to vertex presentation. Clinically estimated gestational age: 37 weeks 0 days Estimated gestational age from initial scan: 37 weeks 0 days. biometry currently performed is as follows: BPD 9.2 cm, 37 weeks 2 days Head circumference 33.3 cm, 38 weeks 0 days Abdominal circumference 33.4 cm, 37 weeks 2 days Femur length 6.8 cm, 35 weeks 1 day. Estimated weight from current parameters is 3043 g, at the 50 second percentile with appropriate interval growth. No anomaly seen. IMPRESSION: Appropriate interval growth, normal current estimated weight. Vertex presentation, normal amniotic fluid volume. Dictated by: Hari Rodriguez M.D. on 11/09/2023 at 6:38 Approved by: Hari Rodriguez M.D. on 11/09/2023 at 6:43
== END ==
LOC: US 15:21
PROVIDERS: Referring Provider Obstetrics & Gynecology; Visit Provider Obstetrics & Gynecology
DX: O24.419 Gestational diabetes mellitus in pregnancy, unspecified control (principal); Z3A.37 37 weeks gestation of pregnancy
CPT/HCPCS: 76815

== ENCOUNTER 2023-11-16 15:36 | Outpatient (CLI) | payer OTHER, SELFPAY | END 2023-11-16 16:09 | disposition home or self-care (01) | LOC: OB 11-22 07:21 | PROVIDERS: Referring Provider Obstetrics & Gynecology; Visit Provider Obstetrics & Gynecology | DX: O24.415 Gestational diabetes mellitus in pregnancy, controlled by oral hypoglycemic drugs (principal); Z3A.37 37 weeks gestation of pregnancy | CPT/HCPCS: 59025; G0378; G0379 ==

== ENCOUNTER 2023-11-18 17:50 | Outpatient (CLI) | payer OTHER, SELFPAY | END 2023-11-18 18:45 | disposition home or self-care (01) | LOC: OB 11-22 07:28 | PROVIDERS: Referring Provider Obstetrics & Gynecology; Visit Provider Obstetrics & Gynecology | DX: O24.415 Gestational diabetes mellitus in pregnancy, controlled by oral hypoglycemic drugs (principal); Z3A.38 38 weeks gestation of pregnancy | CPT/HCPCS: 59025; G0378; G0379 ==

== ENCOUNTER 2023-11-20 12:48 | Emergency (ER) | payer OTHER, SELFPAY ==
[2023-11-20] VITALS (10 sets, daily range): BP systolic 99–116; BP diastolic 56–71; PULSE 85–99; RESP 15–23; TEMP 37; O2SAT 97–100; BMI 33.3
--- NOTE | 2023-11-20 13:06 | DI.RAD.S_ITS ---
PROCEDURE: XR CHEST 1V INDICATIONS: chest pain TECHNIQUE: One view of the chest was acquired. COMPARISON: None. FINDINGS: Overlying EKG leads limit evaluation. Surgical changes and devices: None. Lungs and pleura: Lungs are clear. No pleural effusions or pneumothorax. Mediastinum: Mediastinal contours appear normal. Heart size is normal. Bones and chest wall: No suspicious bony lesions. Overlying soft tissues appear unremarkable. IMPRESSION: No acute cardiopulmonary process. Dictated by: Santhosh Madrigal M.D. on 11/20/2023 at 13:07 Approved by: Santhosh Madrigal M.D. on 11/20/2023 at 13:08
--- NOTE | 2023-11-20 13:08 | EKG_ITS ---
[facility] [address] [place] [address] Test Date: 2023-11-20 Pat Name: Jeane Encarnacion Department: Room: Gender: Female Manufacturing Applications Engineer: : 1995 Requested By: Order Number: [id number] Reading MD: Art Mason MD Measurements Intervals [place] Rate: 83 P: 30 MI: 140 QRS: 27 QRSD: 90 T: 11 QT: 344 QTc: 404 Interpretive Statements Normal sinus rhythm Electronically Signed On 11-21-2023 9:00:12 PDT by Art Mason MD
[2023-11-20 13:12] LABS: Add Manual Diff / Slide Review NO; Basophils Absolute Auto 0 /uL (0-100); Basophils Percent Auto 0.6 % (0-2); Eosinophils Absolute Auto 100 /uL (0-450); Eosinophils Percent Auto 1.3 % (2-4); Hematocrit 35.8 % (36-46); Hemoglobin 12.2 g/dL (12.0-16.0); Lymphocytes Absolute Auto 1400 /uL (1100-4500); Lymphocytes Percent Auto 18.4 % (25-40); Mean Corpuscular HGB Conc 34.2 % (30-36); Mean Corpuscular Hemoglobin 30.3 PG (26-34); Mean Corpuscular Volume 88.5 fL (80-100); Monocytes Absolute Auto 1100 /uL (0-900); Monocytes Percent Auto 14.3 % (3-14); Neutrophils Absolute Auto 5000 /uL (1500-7000); Neutrophils Percent Auto 65.4 % (50-75); Platelet Count 262 X10^3/uL (150-400); Red Blood Cell Count 4.04 X10^6/uL (4.0-5.2); Red Cell Distribution Width 14.3 % (11.6-14.8); White Blood Cell Count 7.7 X10^3/uL (4.5-11.0)
[2023-11-20 13:14] LABS: INR 0.9 (0.9-1.3); Prothrombin Time 10.4 SECONDS (9.4-12.5)
[2023-11-20 13:16] LABS: PTT Partial Thromboplastin Tim 28 SECONDS (25.1-36.5)
[2023-11-20 13:18] LABS: Alanine Aminotransferase 15 IU/L (<35); Albumin 3.7 g/dL (3.5-5.0); Albumin Globulin Ratio 1.1 (1.0-2.8); Alkaline Phosphatase 154 U/L (38-126); Aspartate Aminotransferase 21 IU/L (14-36); BUN Creatinine Ratio 14.5 (6-22); Bilirubin Total 0.9 mg/dL (0.2-1.3); Blood Urea Nitrogen 8 mg/dL (7-17); Calcium 9.6 mg/dL (8.4-10.2); Carbon Dioxide 20 mmol/L (22-32); Chloride 106 mmol/L (98-107); Creatine Kinase < 20 U/L (30-135); Estimated Glomerular Filt Rate > 60 mL/min (>60); Globulin 3.3 g/dL (1.7-4.1); Glucose 90 mg/dL (70-100); HEMOLYSIS < 15 (0-50); Lipase 61 U/L (23-300); Magnesium 1.9 mg/dL (1.6-2.3); Potassium 3.9 mmol/L (3.4-5.1); Sodium 135 mmol/L (137-145)
[2023-11-20 13:30] LABS: NT-proBNP (BNP-Adult 18+) < 20 pg/mL (<125); Troponin I < 0.012 ng/mL (0.01-0.034)
--- NOTE | 2023-11-20 13:32 | ED_ITS ---
HPI - Syncope General Chief Complaint: Syncope Stated Complaint: 9mo preg/ syncopal Time Seen by Provider: 11/20/23 13:32 Source: patient Mode of arrival: EMS Limitations: no limitations History of Present Illness HPI narrative: 27-year-old female who presents with complaint of likely syncopal episode. Patient states she was up cleaning in the house started to feel lightheaded and dizzy felt like she might pass out. Patient states she did lose consciousness she does not recall how long. She states she woke up with her who was in the house. She had called out to him before she lost consciousness. No reports of tonic-clonic activity. Patient states she feels much better now. She states she felt dizzy and lightheaded but no chest pain, felt sort of breath for about a minute before but states she was also very active in cleaning the house. No fevers or chills. No chest pain or shortness of breath otherwise recently. No new swelling in extremities. No abdominal back or flank pain. No vaginal bleeding. Has been noted there was some fluid leakage from the vagina. States he did not think it is mild so possible to be amniotic fluid. Patient denies any urinary symptoms otherwise. She states she has been feeling baby move prior to and after the event. Patient states she is on metformin, prenatals, cetirizine and montelukast PRN. No prior surgeries. No known drug allergies. No tobacco, alcohol or recreational drugs. Patient has had syncopal or near syncopal episodes of few times in the past remotely and twice in her 1st trimester. Related Data Home Medications Medication Instructions Recorded Confirmed cholecalciferol (vitamin D3) 25 25 mcg PO DAILY 04/04/23 11/16/23 mcg (1,000 unit) capsule loratadine 10 mg tablet 10 mg PO DAILY 04/04/23 11/16/23 vit no.95-ferrous 1 tab PO DAILY 04/04/23 11/16/23 fumarate 28 mg-folic acid 800 mcg tablet ( Multivitamins) Previous Rx's Medication Instructions Recorded sumatriptan succinate 100 mg See Rx Instructions PO .COMPLEX 06/15/23 tablet (Imitrex) #20 tabs montelukast 10 mg tablet 10 mg PO DAILY #30 tabs 06/20/23 nystatin-triamcinolone 100,000 1 applic topical BID PRN itching 08/31/23 unit/g-0.1 % topical cream #30 grams blood-glucose meter (Blood Glucose #1 ea 09/07/23 Monitoring kit) lancets #100 ea 09/07/23 Double Electric Breast Pump 1 ea topical .prn #1 ea 09/21/23 metformin 500 mg tablet 500 mg PO BIDWMEAL #60 tabs 09/21/23 hydrocortisone 1 % topical cream 1 applic topical BID-QID PRN skin 11/01/23 irritation #28.35 grams blood sugar diagnostic (FreeStyle #100 strips 11/02/23 Lite Strips) Allergies Allergy/AdvReac Type Severity Reaction Status Date / Time pineapple Allergy Intermediate Swelling Verified 11/08/23 10:25 of Lip/Tongue/Throat Review of Systems Review of Systems ROS Unobtainable: All systems reviewed & are unremarkable except as noted in HPI and below Patient History Medical History Allergies Anxiety Hypothyroidism Migraine without aura Eczema Environmental allergies Surgical History [place] teeth extracted (~2021) Family History Father Diabetes mellitus Mother Anemia Obesity Cardiac anomaly Grandmother Diabetes mellitus Sister Cerebral palsy Social History marital status: number of children: 1 household members: spouse and children lives independently: Yes caregiver/support person: Yes housing: condominium pets and animals: Yes (dog) education level: high school occupational status: employed current occupational exposures/hazards: No special nicole needs: No travel history: recent seatbelt use: always water heater temp set < 120 deg: Yes working smoke detector in home: Yes fire extinguisher in home: No carbon monox detector in home: Yes firearms in home: Yes firearms unloaded and locked: Yes do you feel safe at home: Yes Smoking Status: Former smoker second hand exposure: No alcohol intake: former substance use type: does not use during the past year weight has: decreased > 10 lbs well-balanced diet: about half the time daily servings fruits/ve-4 caffeine: Yes (occasional te) Type(s) of exercise: aerobic and weight lifting Smoking Status: Former smoker alcohol intake frequency: a few times a month Substance Use Type: does not use Exam Narrative Exam Narrative: GENERAL: Alert and oriented x three, well-appearing female in mild distress HEENT: Head normocephalic, atraumatic, EOMI, pupils reactive, face symmetric, moist mucous membranes NECK: Supple, full range of motion CARDIOVASCULAR: Regular rate and rhythm without murmurs, rubs or gallops. RESPIRATORY: Breath sounds equal bilaterally, no wheezes rales or rhonchi. ABDOMEN: Soft, nontender. Gravid. No contractions appreciated. Normoactive bowel sounds all 4 quadrants. No guarding or rebound, rigidity, no mass : No CVA tenderness EXTREMITIES: Normal range of motion, no clubbing or edema. Neurovascularly intact NEUROLOGICAL: Cranial nerves II through XII grossly intact. Moving all extremities SKIN: Warm, dry, no petechiae, no rashes or lesions. Initial Vital Signs Initial Vital Signs: Vital Signs Pulse Rate 89 11/20/23 12:53 Pulse Oximetry 99 11/20/23 12:53 Course Orders Ordered: ED Orders 11/20/23 12:49 EKG-12 Lead Stat 11/20/23 12:56 Complete Blood Count AUTO DIFF Stat Comprehensive Metabolic Panel Stat Lipase Stat Magnesium Stat NT-proBNP (BNP-Adult 18+) Stat PTT Partial Thromboplastin Cristino Stat Prothrombin Time INR Stat Troponin & CK Cardiac Panel Stat 11/20/23 13:06 XR chest 1V Stat Discontinued Medications Sodium Chloride (Normal Saline 0.9%) 500 mls @ 1,000 mls/hr IV BOLUS ONE Stop: 11/20/23 14:20 Last Infusion: 11/20/23 14:54 Dose: Infused Documented By: Admin: 11/20/23 14:15 Dose: 1,000 mls/hr Documented By: RIMA Vital Signs Vital signs: Vital Signs - 8 hr 11/20/23 12:53 11/20/23 12:54 11/20/23 12:54 Temperature Pulse Rate 89 88 Respiratory Rate 15 Blood Pressure 116/71 Pulse Oximetry 99 98 Oxygen Delivery Method 11/20/23 13:00 11/20/23 13:00 11/20/23 13:00 Temperature 98.6 F Pulse Rate 85 91 H Respiratory Rate 20 19 Blood Pressure 116/71 101/62 Pulse Oximetry 100 97 Oxygen Delivery Method Room Air 11/20/23 13:22 11/20/23 13:23 11/20/23 13:23 Temperature Pulse Rate 95 H 98 H Respiratory Rate 17 19 Blood Pressure 107/56 L Pulse Oximetry 99 99 Oxygen Delivery Method Room Air 11/20/23 13:30 11/20/23 13:30 11/20/23 13:51 Temperature Pulse Rate 99 H Respiratory Rate 21 Blood Pressure 115/62 99/56 L Pulse Oximetry 99 Oxygen Delivery Method 11/20/23 13:51 11/20/23 14:00 11/20/23 14:30 Temperature Pulse Rate 89 91 H 87 Respiratory Rate 16 19 18 Blood Pressure Pulse Oximetry 100 100 98 Oxygen Delivery Method Room Air 11/20/23 14:50 11/20/23 14:50 Temperature Pulse Rate 93 H Respiratory Rate 23 Blood Pressure 104/64 Pulse Oximetry 99 Oxygen Delivery Method Room Air MDM - Syncope Lab Data 11/20/23 12:56 11/20/23 12:56 Labs: Lab Results 11/20/23 Range/Units 12:56 WBC 7.7 (4.5-11.0) X10^3/uL RBC 4.04 (4.0-5.2) X10^6/uL Hgb 12.2 (12.0-16.0) g/dL Hct 35.8 L (36-46) % MCV 88.5 (80-100) fL MCH 30.3 (26-34) PG MCHC 34.2 (30-36) % RDW 14.3 (11.6-14.8) % Plt Count 262 (150-400) X10^3/uL Neut % (Auto) 65.4 (50-75) % Lymph % (Auto) 18.4 L (25-40) % Rogers % (Auto) 14.3 H (3-14) % Eos % (Auto) 1.3 L (2-4) % Baso % (Auto) 0.6 (0-2) % Neut # (Auto) 5000 (5006-3715) /uL Lymph # (Auto) 1400 (9689-9433) /uL Rogers # (Auto) 1100 H (0-900) /uL Eos # (Auto) 100 (0-450) /uL Baso # (Auto) 0 (0-100) /uL PT 10.4 (9.4-12.5) SECONDS INR 0.9 (0.9-1.3) APTT 28 (25.1-36.5) SECONDS Sodium 135 L (137-145) mmol/L Potassium 3.9 (3.4-5.1) mmol/L Chloride 106 (98-107) mmol/L Carbon Dioxide 20 L (22-32) mmol/L BUN 8 (7-17) mg/dL Creatinine 0.55 (0.52-1.04) mg/dL Estimated GFR > 60 (>60) mL/min BUN/Creatinine Ratio 14.5 (6-22) Glucose 90 (70-100) mg/dL Calcium 9.6 (8.4-10.2) mg/dL Magnesium 1.9 (1.6-2.3) mg/dL Total Bilirubin 0.9 (0.2-1.3) mg/dL AST 21 (14-36) IU/L ALT 15 (<35) IU/L Alkaline Phosphatase 154 H (38-126) U/L Total Creatine Kinase < 20 L (30-135) U/L Troponin I < 0.012 (0.01-0.034) ng/mL NT-Pro-B Natriuret Pep < 20 (<125) pg/mL Total Protein 7.0 (6.3-8.2) g/dL Albumin 3.7 (3.5-5.0) g/dL Globulin 3.3 (1.7-4.1) g/dL Albumin/Globulin Ratio 1.1 (1.0-2.8) Lipase 61 (23-300) U/L Imaging Data Chest x-ray: Radiologist's Impression: [address] [address] XRay Report Signed Patient: Jeane Encarnacion MR#: [id number] : 1995 Acct:[id number] Age/Sex: 27 / F Date of Service: 11/20/23 Loc: ED Accession Number: [id number] Procedure: XR chest 1V Ordering Provider: Rosario Choi D.O. PROCEDURE: XR CHEST 1V INDICATIONS: chest pain TECHNIQUE: One view of the chest was acquired. COMPARISON: None. FINDINGS: Overlying EKG leads limit evaluation. Surgical changes and devices: None. Lungs and pleura: Lungs are clear. No pleural effusions or pneumothorax. Mediastinum: Mediastinal contours appear normal. Heart size is normal. Bones and chest wall: No suspicious bony lesions. Overlying soft tissues appear unremarkable. IMPRESSION: No acute cardiopulmonary process. Dictated by: Santhosh Madrigal M.D. on 11/20/2023 at 13:07 Approved by: Santhosh Madrigal M.D. on 11/20/2023 at 13:08 ECG Data Attestation: I personally reviewed and interpreted this ECG as follows: Prior ECG tracings: available for review Interpretation: Sinus rhythm rate 81 NC 140 QRS of 90 QTC of 404, no acute ST elevation depression noted. Patient has prior from 05/23/2023, no acute ST changes appears similar to prior. No S1 Q 3 T3. MDM Narrative Medical decision making narrative: 27-year-old female 38 weeks who presents with syncopal episode while cleaning the house. Patient has had episodes in the past infrequently. She felt lightheaded and a little short of breath just prior to the event but has not been feeling well recently. Labs show white count of 7.7 hemoglobin of 12 platelets of 262, coags are negative sodium is 135 potassium 3.9 chloride 106 CO2 is 20 BUN 8 with a creatinine of 0.55 LFTs are negative alk-phos is 154 total CK is less than 20 troponins less than 0.012 with a BNP of less than 20. EKG shows sinus rhythm, rate 83 NC 140 QRS of 90 QTC of 440. Chest x-ray prelim is negative. Formal report shows no acute change. Patient did receive a 500 mL bolus. She states she is feeling much improved. Workup overall was reassuring, patient may have had amniotic fluid leak her noted some fluid that did not have any odor at the scene from the vaginal area. Patient felt medically cleared and discharged to L and D. Spoke with tractor sweeper driver coverage Dr. Das, plan to go to L&D for further evaluation. Discharge Plan Departure Patient Disposition: Home Clinical Impression: Syncope, Activity Restrictions/Additional Instructions: Go to L&D for further evaluation. I hope you continue to feel improved if you have recurrent episodes please return to the emergency department. Prescriptions: No Action sumatriptan succinate [Imitrex] 100 mg tablet See Rx Instructions PO .COMPLEX Qty: 20 6RF Rx Instructions: take 1 tab at onset of headache; if no relief, may repeat 1 tab after at least 2 hrs; max = 2 tabs/24 hrs PO montelukast 10 mg tablet 10 mg PO DAILY Qty: 30 3RF (DME) blood-glucose meter [Blood Glucose Monitoring] Kit See Rx Instructions .MEDSUPPLY Qty: 1 0RF Rx Instructions: please chk AM fasting blood sugar, and 1 hour after brkfst, lunch and dinner (DME) lancets Misc See Rx Instructions miscellaneous .MEDSUPPLY Qty: 100 0RF Rx Instructions: please chk AM fasting blood sugar, and 1 hour after brkfst, lunch and dinner (DME) FreeStyle Lite Strips Strip See Rx Instructions .ROUTE .COMPLEX Qty: 100 1RF Dose Instruction: PLEASE CHECK MORNING FASTING BLOOD SUGAR AND 1 HOUR AFTER BREAKFAST, LUNCH AND DINNER Rx Instructions: PLEASE CHECK MORNING FASTING BLOOD SUGAR AND 1 HOUR AFTER BREAKFAST, LUNCH AND DINNER loratadine 10 mg tablet 10 mg PO DAILY PNV cmb#95-ferrous fumarate-FA [ Multivitamins] 28 mg iron- 800 mcg tablet 1 tab PO DAILY cholecalciferol (vitamin D3) 25 mcg (1,000 unit) capsule 25 mcg PO DAILY Double Electric Breast Pump 1 ea topical .prn Qty: 1 0RF metformin 500 mg tablet 500 mg PO BIDWMEAL Qty: 60 6RF hydrocortisone 1 % cream 1 applic topical BID-QID PRN (Reason: skin irritation) Qty: 28.35 2RF nystatin-triamcinolone 100,000-0.1 unit/g-% cream 1 applic topical BID PRN (Reason: itching) Qty: 30 0RF Referrals: ProviderAnisha [Primary Care Provider] - Stand Alone Forms: Patient Portal/API
--- NOTE | 2023-11-20 13:34 | PC.NURSE ---
Pt reports being 9 months with due date of 11/28-11/30 and seeing provider Bautista. Hx of gestational diabetes with current and on metformin. States she felt symptoms like she might pass out and called for who witnessed the episode and helped her. He reports LOC for 25 -30 seconds with loss of bladder. Asked patient if potentially was amniotic fluid and patient unsure. Pt is currently A&Ox4 and appears in no acute distress. She denies any pain or injuries. Reports she can feel baby moving. Provider Steph made aware of patient presentation.
--- NOTE | 2023-11-20 14:03 | P.TNLD_ITS ---
Visit Information Visit Information Date of evaluation: 11/20/23 Primary OB Provider: Robin Baum On-call OB Provider: Giuliana Das Comments/Additional reasons for admission: 27 yo at 38w5d presented to ER via EMS for evaluation of syncope. See ER notes for details - felt dizzy, light headed and called for . Brief LOC - called EMS. Workup in ER including labs, CXR, EKG reassuring. H/o syncopal episodes in first trimester as well. otherwise complicated by GDM A2 on metformin Feeling good FM. No VB or contractions. noted possible vaginal fluid - sent to L&D for evaluation. Vital Signs Vital Signs: Vital Signs - 8 hr 11/20/23 12:53 11/20/23 12:54 11/20/23 12:54 Temperature Pulse Rate 89 88 Respiratory Rate 15 Blood Pressure 116/71 Pulse Oximetry 99 98 Oxygen Delivery Method 11/20/23 13:00 11/20/23 13:00 11/20/23 13:00 Temperature 98.6 F Pulse Rate 85 91 H Respiratory Rate 20 19 Blood Pressure 116/71 101/62 Pulse Oximetry 100 97 Oxygen Delivery Method Room Air 11/20/23 13:22 11/20/23 13:23 11/20/23 13:23 Temperature Pulse Rate 95 H 98 H Respiratory Rate 17 19 Blood Pressure 107/56 L Pulse Oximetry 99 99 Oxygen Delivery Method Room Air 11/20/23 13:30 11/20/23 13:30 11/20/23 13:51 Temperature Pulse Rate 99 H Respiratory Rate 21 Blood Pressure 115/62 99/56 L Pulse Oximetry 99 Oxygen Delivery Method 11/20/23 13:51 Temperature Pulse Rate 89 Respiratory Rate 16 Blood Pressure Pulse Oximetry 100 Oxygen Delivery Method [facility] Medical History Allergies Anxiety Hypothyroidism Migraine without aura Eczema Environmental allergies Surgical History [place] teeth extracted (~2021) Family History Father Diabetes mellitus Mother Anemia Obesity Cardiac anomaly Grandmother Diabetes mellitus Sister Cerebral palsy Social History marital status: number of children: 1 household members: spouse and children lives independently: Yes caregiver/support person: Yes housing: condominium pets and animals: Yes (dog) education level: high school occupational status: employed current occupational exposures/hazards: No special nicole needs: No travel history: recent seatbelt use: always water heater temp set < 120 deg: Yes working smoke detector in home: Yes fire extinguisher in home: No carbon monox detector in home: Yes firearms in home: Yes firearms unloaded and locked: Yes do you feel safe at home: Yes Smoking Status: Former smoker second hand exposure: No alcohol intake: former substance use type: does not use during the past year weight has: decreased > 10 lbs well-balanced diet: about half the time daily servings fruits/ve-4 caffeine: Yes (occasional te) Type(s) of exercise: aerobic and weight lifting Exam Vital Signs (past 8 hours): - 11/20/23 12:53 11/20/23 12:54 11/20/23 12:54 Temperature Pulse Rate 89 88 Respiratory Rate 15 Blood Pressure 116/71 Pulse Oximetry 99 98 Oxygen Delivery Method 11/20/23 13:00 11/20/23 13:00 11/20/23 13:00 Temperature 98.6 F Pulse Rate 85 91 H Respiratory Rate 20 19 Blood Pressure 116/71 101/62 Pulse Oximetry 100 97 Oxygen Delivery Method Room Air 11/20/23 13:22 11/20/23 13:23 11/20/23 13:23 Temperature Pulse Rate 95 H 98 H Respiratory Rate 17 19 Blood Pressure 107/56 L Pulse Oximetry 99 99 Oxygen Delivery Method Room Air 11/20/23 13:30 11/20/23 13:30 11/20/23 13:51 Temperature Pulse Rate 99 H Respiratory Rate 21 Blood Pressure 115/62 99/56 L Pulse Oximetry 99 Oxygen Delivery Method 11/20/23 13:51 Temperature Pulse Rate 89 Respiratory Rate 16 Blood Pressure Pulse Oximetry 100 Oxygen Delivery Method Oxygen Delivery Method Room Air Objective Labs 11/20/23 12:56 11/20/23 12:56 Labs: Laboratory Results - last 24 hr 11/20/23 12:56 WBC 7.7 RBC 4.04 Hgb 12.2 Hct 35.8 L MCV 88.5 MCH 30.3 MCHC 34.2 RDW 14.3 Plt Count 262 Neut % (Auto) 65.4 Lymph % (Auto) 18.4 L [place] % (Auto) 14.3 H Eos % (Auto) 1.3 L Baso % (Auto) 0.6 Neut # (Auto) 5000 Lymph # (Auto) 1400 [place] # (Auto) 1100 H Eos # (Auto) 100 Baso # (Auto) 0 PT 10.4 INR 0.9 APTT 28 Sodium 135 L Potassium 3.9 Chloride 106 Carbon Dioxide 20 L BUN 8 Creatinine 0.55 Estimated GFR > 60 BUN/Creatinine Ratio 14.5 Glucose 90 Calcium 9.6 Magnesium 1.9 Total Bilirubin 0.9 AST 21 ALT 15 Alkaline Phosphatase 154 H Total Creatine Kinase < 20 L Troponin I < 0.012 NT-Pro-B Natriuret Pep < 20 Total Protein 7.0 Albumin 3.7 Globulin 3.3 Albumin/Globulin Ratio 1.1 Lipase 61
[2023-11-20] MEDS: SODIUM CHLORIDE 0.9% 500 ML 1000 ML IV (14:15)
--- NOTE | 2023-11-20 14:17 | PC.NURSE ---
Second RN looked at LEFT AC 18 gauge IV and was able to repositioned. Patient denied pain and blood return present. Pt also denies any pain with flushing of IV.
== END 2023-11-20 14:57 | disposition home or self-care (01) ==
PROVIDERS: Emergency Provider Emergency Medicine
DX: O26.893 Other specified pregnancy related conditions, third trimester (principal); R55 Syncope and collapse; R07.9 Chest pain, unspecified
CPT/HCPCS: 59025; 71045; 76815; 80053; 82550; 83690; 83735; 83880; 84112; 84484; 85025; 85610; 85730; 93005; 93010; 96360; 99284

== ENCOUNTER 2023-11-20 14:59 | Outpatient (CLI) | payer OTHER, SELFPAY ==
--- NOTE | 2023-11-20 16:24 | P.TNLD_ITS ---
Visit Information Visit Information Date of evaluation: 11/20/23 Primary OB Provider: Robin Baum On-call OB Provider: Marleni Hughes Reason for Evaluation: Yes other Comments/Additional reasons for admission: witnessed syncopal episode at home, no fall ( caught on way to the ground) Vital Signs Vital Signs: BP 117/80 HR 90 RR 16 Tc afebrile [facility] Medical History Allergies Anxiety Hypothyroidism Migraine without aura Eczema Environmental allergies Surgical History [place] teeth extracted (~2021) Family History Father Diabetes mellitus Mother Anemia Obesity Cardiac anomaly Grandmother Diabetes mellitus Sister Cerebral palsy Social History marital status: number of children: 1 household members: spouse and children lives independently: Yes caregiver/support person: Yes [facility] pets and animals: Yes (dog) education level: high school occupational status: employed current occupational exposures/hazards: No special nicole needs: No travel history: recent seatbelt use: always water heater temp set < 120 deg: Yes working smoke detector in home: Yes fire extinguisher in home: No carbon monox detector in home: Yes firearms in home: Yes firearms unloaded and locked: Yes do you feel safe at home: Yes Smoking Status: Former smoker second hand exposure: No alcohol intake: former substance use type: does not use during the past year weight has: decreased > 10 lbs well-balanced diet: about half the time daily servings fruits/ve-4 caffeine: Yes (occasional te) Type(s) of exercise: aerobic and weight lifting Review of Systems Review of Systems ROS: Yes All systems reviewed with the patient and are negative except as otherwise documented Exam Const General: cooperative, healthy appearing and comfortable Nutritional Appearance: overweight Orientation: alert, awake and oriented x3 Limitations: mental status not altered Resp Effort & Inspection: normal respiratory effort Cardio Pulses: normal peripheral pulses GI Inspection: normal to inspection Other: gravid, size > dates transabdominal US: cephalic presentation, MVP 6cm Other: deferred amnisure negative Skin General: no rashes or lesions noted Neuro General: patient alert, patient awake and patient oriented x3 Extrem General: normal to inspection Psych Mental Status: mental status grossly normal Mood: anxious mood Judgment: judgment good Evaluation Evaluation Baseline heart rate: 135 Variability: Moderate (11-25) monitor accelerations: Present Monitor Decelerations: Absent Category of Tracing: Reactive Status: Category l Diagnosis, Plan/Disposition Final Diagnosis (1) Syncopal episodes: Status: Acute Problem details: Neuro workup negative, cardiac w/u in progress Plan/Disposition Plan: 27yo at 38w5d D= early OSH US presents via ED for further evaluation after witnessed syncopal episode at home [employer] without fall or injury Witnessed syncopal episode consistent with prior episodes of vasovagal syncope, last in first trimester per pt reviewed that I suspect she was not as aware of her typical warning symptoms (SOB, diaphoresis) as she was busy cleaning the house when incident occurred, encouraged to decrease daily activities without full bed rest, avoid standing for prolonged periods of time, use of compression stockings and increase PO hydration labs and EKG in ED prior to L&D evaluation wnl, noted very mild hyponatremia (135) and reviewed judicious intake of salty snacks PRN concern for malpresentation Notified at time of last NST for concern of malpresentation as FHTs were audible only in RUQ bedside US at time of today's triage encounter confirms cephalic presentation, pt verbalized reassurance due to concern for unstable lie strict labor/SROM/FM precautions reviewed and pt verbalized understanding keep f/u PNC as scheduled 11/21 (Dr. Lin), anticipate planning IOL date at that time A2GDM (metformin) BG 120 this AM, 114 immediately following event per EMS, 90 on arrival to ED encouraged to keep small snacks readily available OB Disposition: home
== END 2023-11-20 16:25 | disposition home or self-care (01) ==
LOC: OB 11-22 07:28
PROVIDERS: Referring Provider Family Medicine; Visit Provider Family Medicine
DX: O26.893 Other specified pregnancy related conditions, third trimester (principal); R55 Syncope and collapse; O24.415 Gestational diabetes mellitus in pregnancy, controlled by oral hypoglycemic drugs; Z3A.38 38 weeks gestation of pregnancy
CPT/HCPCS: 59025; 76815; 84112; G0378; G0379

== ENCOUNTER 2023-11-22 08:19 | Outpatient (CLI) | payer OTHER, SELFPAY | END 2023-11-22 09:05 | disposition home or self-care (01) | LOC: LABOR 08:49 → OB 11-28 06:34 | PROVIDERS: Referring Provider Obstetrics & Gynecology; Visit Provider Obstetrics & Gynecology | DX: O24.415 Gestational diabetes mellitus in pregnancy, controlled by oral hypoglycemic drugs (principal); Z3A.38 38 weeks gestation of pregnancy | CPT/HCPCS: 59025; G0378; G0379 ==

== ENCOUNTER 2023-11-23 19:16 | Inpatient (IN) | payer OTHER, SELFPAY ==
[2023-11-23 19:46] VITALS: BP 121/72
[2023-11-23] MEDS: DINOPROSTONE VAG (CERVIDIL) 10 MG VAG (20:30)
[2023-11-23 20:55] LABS: Add Manual Diff / Slide Review NO; Basophils Absolute Auto 0 /uL (0-100); Basophils Percent Auto 0.5 % (0-2); Eosinophils Absolute Auto 100 /uL (0-450); Hemoglobin 12.4 g/dL (12.0-16.0); Lymphocytes Absolute Auto 2100 /uL (1100-4500); Lymphocytes Percent Auto 21.2 % (25-40); Mean Corpuscular HGB Conc 34.5 % (30-36); Mean Corpuscular Hemoglobin 30.2 PG (26-34); Mean Corpuscular Volume 87.5 fL (80-100); Monocytes Absolute Auto 1200 /uL (0-900); Monocytes Percent Auto 12.7 % (3-14); Neutrophils Absolute Auto 6300 /uL (1500-7000); Neutrophils Percent Auto 64.6 % (50-75); Platelet Count 280 X10^3/uL (150-400); Red Blood Cell Count 4.12 X10^6/uL (4.0-5.2); Red Cell Distribution Width 14.3 % (11.6-14.8); White Blood Cell Count 9.7 X10^3/uL (4.5-11.0)
[2023-11-24] MEDS: ZOLPIDEM 5 MG TABLET PO (00:17)
--- NOTE | 2023-11-24 08:00 | P.HPOB_ITS ---
OB HPI Date/Time Date of admission: 11/23/23 Date Patient Seen: 11/24/23 Time Patient Seen: 08:00 History of Present Condition Chief complaint: Induction BRITTON Calculator 2 Estimated Delivery Date Method Current WG Current Estimate 11/29/23 LMP (Certain) 39w 3d Other Estimates 12/01/23 Ultrasound #1 39w 1d Estimated Gestational Age (weeks): 39+2 : 2 Para: 1 care: good care, initiated at week # (15), number of visits (12) and pounds weight gain (0) Dating criteria OB: LMP confirmed by 1st trimester US Ultrasounds: normal 1st trimester US and normal mid trimester US (??cleft palate, repeat u/s normal) Obstetrical complications: gestational diabetes (on Metformin) Medical complications OB: none Indications Indication for induction OB: gestational diabetes Preadmission Labs Last OB Lab Results: 2 Blood Type O Positive 11/23/23 20:20 Antibody Screen Negative 11/23/23 20:20 Hct 36.0 % (36-46) 11/23/23 20:20 Hgb 12.4 g/dL (12.0-16.0) 11/23/23 20:20 Hep Bs Antigen Negative s/c (NEGATIVE) 06/01/23 11:19 Hepatitis C Antibody Negative s/c (NEGATIVE) 06/01/23 11:19 Rubella Antibody 60.3 IU/mL (>15) 06/01/23 11:19 VZV IgG Antibody 308 index (Immune >165) 06/01/23 11:19 Glucose 1 Hr 50 gm 151 mg/dL (76-139) H 08/23/23 10:55 Group B Strep (PCR) Neg for grp b strep 11/01/23 11:30 Glucose Tolerance Testing: Fasting (107), 1 hr (205), 2 hr (151) and 3 hr (167) -: Chlamydia screen: negative, Gonorrhea screen: negative and Urine: negative Genetic Screens: Cell-free DNA: Normal (normal female) External Labs -: Urine: negative Prior (ies) Past Pregnancies Del. Date GA/Weeks Labor Lgth Wt Sex Route Outcome Anesthesia Place Delv Breastfeed Preg Comp Name 07/26/17 39.3 24 6 lb 14 oz Female vaginal live - full te rm epidural [place] briefly, milk supply dried out none Johanny Evaluation Evaluation Baseline heart rate: 135 Variability: Moderate (11-25) monitor accelerations: Present Monitor Decelerations: Absent Contraction Frequency (minutes): 4 Uterine Contraction Intensity: Mild Status: Category l Dilation (cm): 2 Effacement (%): 75 station: -1 [facility] Medical History Allergies Anxiety Hypothyroidism Migraine without aura Eczema Environmental allergies Surgical History [place] teeth extracted (~2021) Family History Father Diabetes mellitus Mother Anemia Obesity Cardiac anomaly Grandmother Diabetes mellitus Sister Cerebral palsy Social History marital status: number of children: 1 household members: spouse and children lives independently: Yes caregiver/support person: Yes [facility] pets and animals: Yes (dog) education level: high school occupational status: employed current occupational exposures/hazards: No special nicole needs: No travel history: recent seatbelt use: always water heater temp set < 120 deg: Yes working smoke detector in home: Yes fire extinguisher in home: No carbon monox detector in home: Yes firearms in home: Yes firearms unloaded and locked: Yes do you feel safe at home: Yes Smoking Status: Never smoker second hand exposure: No alcohol intake: former substance use type: does not use during the past year weight has: decreased > 10 lbs well-balanced diet: about half the time daily servings fruits/ve-4 caffeine: Yes (occasional te) Type(s) of exercise: aerobic and weight lifting Meds Home Medications and Allergies Home Medications Medication Instructions Recorded Confirmed Type cholecalciferol (vitamin D3) 25 25 mcg PO DAILY 04/04/23 11/23/23 History mcg (1,000 unit) capsule vit no.95-ferrous 1 tab PO DAILY 04/04/23 11/22/23 History fumarate 28 mg-folic acid 800 mcg tablet ( Multivitamins) sumatriptan succinate 100 mg See Rx Instructions PO .COMPLEX 06/15/23 11/22/23 Rx tablet (Imitrex) #20 tabs blood-glucose meter (Blood Glucose #1 ea 09/07/23 11/22/23 Rx Monitoring kit) lancets #100 ea 09/07/23 11/22/23 Rx Double Electric Breast Pump 1 ea topical .prn #1 ea 09/21/23 11/22/23 Rx metformin 500 mg tablet 500 mg PO BIDWMEAL #60 tabs 09/21/23 11/23/23 Rx blood sugar diagnostic (FreeStyle #100 strips 11/02/23 11/22/23 Rx Lite Strips) Allergies Allergy/AdvReac Type Severity Reaction Status Date / Time pineapple Allergy Intermediate Swelling Verified 11/22/23 08:05 of Lip/Tongue/Throat OB Exam Narrative Exam Narrative: Generally: Patient sitting on ball, no acute distress Lungs: Clear to auscultation bilaterally Cardiovascular: Regular rate and rhythm Fundal height: 41 cm Estimated weight: 7-1/2 lb Extremities: 1+ nonpitting edema Objective Labs 11/23/23 20:20 Labs: Laboratory Results - last 24 hr 11/23/23 20:20 WBC 9.7 RBC 4.12 Hgb 12.4 Hct 36.0 MCV 87.5 MCH 30.2 MCHC 34.5 RDW 14.3 Plt Count 280 Neut % (Auto) 64.6 Lymph % (Auto) 21.2 L [place] % (Auto) 12.7 Eos % (Auto) 1.0 L Baso % (Auto) 0.5 Neut # (Auto) 6300 Lymph # (Auto) 2100 [place] # (Auto) 1200 H Eos # (Auto) 100 Baso # (Auto) 0 Blood Type O Positive Antibody Screen Negative Assessment and Plan Assessment and Plan Assessment and Plan narrative: Assessment: 27-year-old at 39 +2/7 weeks gestation status post Cervidil overnight Patient having contractions that she is aware of Gestational diabetes well-controlled with metformin GBS negative Plan: Patient desires an epidural Pitocin after epidural Artificial rupture of membranes once comfortable Expected management to spontaneous vaginal delivery Fasting postprandial blood sugars Time-Based Coding :: [TOTAL MINUTES] spent with patient and on the chart (including review of chart, obtaining history, exam, reviewing outside data, placing orders, documenting exam and treatment plan, and counseling patient) on [DATE].
[2023-11-24] MEDS: OXYTOCIN PREMIX 30 UNIT/500 ML PLAST..BAG IV (10:31)
[2023-11-24] MEDS: LACTATED RINGERS 1,000 ML 100 ML IV ×3 (10:31→20:12)
--- NOTE | 2023-11-24 10:48 | PM.AN.REGBLK ---
[facility] <Desiree Wasserman, CASHIER RECEPTIONIST - Last Filed: 12/07/23 16:24> Pre-procedure PMH/ROS narrative: active labor GDM syncopal episode over weekend, as well as in first trimester PSH/Anesthesia history narrative: epidural x 1 ASA Class: II Labs: Hct 36.0 % (36-46) 11/23/23 20:20 Plt Count 280 X10^3/uL (150-400) 11/23/23 20:20 Medications: Current Medications Generic Name Dose Route Start Last Admin Trade Name Freq PRN Reason Stop Dose Admin Calcium Carbonate 1,000 mg 11/23/23 19:29 Calcium Carbonate 500 Mg Tab PO Q2HR PRN Dyspepsia Carboprost Tromethamine 250 mcg 11/23/23 19:29 Carboprost 250 Mcg/Ml Ampul IM Q90M PRN Bleeding Diphenhydramine HCl 25 mg 11/24/23 10:46 Diphenhydramine 50 Mg/Ml Vial IV Q10M PRN Pruritis Ephedrine Sulfate 10 mg 11/24/23 10:46 Ephedrine 50 Mg/Ml Vial IV Q5M PRN Blood pressure decrease more than 20% of baseline. Oxytocin/Lactated Ringer's 30 unit in 500 mls @ 200 mls/hr 11/23/23 19:29 Oxytocin Premix IV CONT PRN Bleeding Protocol Tranexamic Acid 1,000 mg/ 100 mls @ 600 mls/hr 11/23/23 19:29 Sodium Chloride IV NOW PRN Bleeding Oxytocin/Lactated Ringer's 30 unit in 500 mls @ 2 mls/hr 11/24/23 09:55 11/24/23 10:31 Oxytocin Premix IV 2 milliunit/min TITRATE MORRIS 2 mls/hr Administration Protocol 2 MILLIUNIT/MIN FENT 2MCG/ML BUPIV 0.125% EPI 200 mcg in 100 mls @ 8 mls/hr 11/24/23 11:00 Fentanyl/Bupiv/Ns 2mcg/Ml - 0.125% EPIDURAL CONT MORRIS Lidocaine HCl 20 ml 11/23/23 19:29 Lidocaine 1% 20 Ml INJ INTRA-OP PRN Post Delivery Metformin HCl 500 mg 11/24/23 08:00 11/24/23 09:06 Metformin Hcl 500 Mg Tablet PO Not Given 0800,1700 MORRIS Methylergonovine Maleate 0.2 mg 11/23/23 19:29 Methylergonovine 0.2 Mg/Ml Vial IM NOW PRN Bleeding Methylergonovine Maleate 0.2 mg 11/23/23 19:29 Methylergonovine 0.2 Mg Tablet PO Q6HR PRN Heavy Bleeding Misoprostol 400 mcg 11/23/23 19:29 Misoprostol 200 Mcg Tablet SL NOW PRN Bleeding Misoprostol 800 mcg 11/23/23 19:29 Misoprostol 200 Mcg Tablet VA NOW PRN Bleeding Nalbuphine HCl 2.5 mg 11/24/23 10:46 Nalbuphine 20 Mg/Ml Ampul IV Q10M PRN Pruritis Naloxone HCl 0.2 mg 11/23/23 19:29 Naloxone 0.4 Mg/Ml Vial IV Q2MIN PRN Opiate Reversal Ondansetron HCl 4 mg 11/23/23 19:29 Ondansetron 4 Mg/2 Ml Inj IV Q4HR PRN Nausea And Vomiting Oxytocin 10 unit 11/23/23 19:29 Oxytocin 10 Unit/Ml Vial IM NOW PRN Bleeding Zolpidem Tartrate 5 mg 11/23/23 21:08 11/24/23 00:17 Zolpidem 5 Mg Tablet PO 5 mg BEDTIME PRN Administration Sleep Allergies: Allergies Allergy/AdvReac Type Severity Reaction Status Date / Time pineapple Allergy Intermediate Swelling Verified 11/22/23 08:05 of Lip/Tongue/Throat Procedure Insertion date: 11/24/23 Insertion time: 10:14 Prep/Local: betadine x3 (chloraprep) Interspace: l3 l4 Patient position: sitting Needle: 18 gauge Anhtead Loss of resistance with: saline DASHA at (cm): 6 Catheter placed at SKIN (cm): 15 Initial Medications TEST DOSE time: 10:15 TEST DOSE: 1.5% lidocaine with epinephrine 1:200k (mL): 3 BOLUS DOSE time: 10:17 BOLUS DOSE (mL): 5 BOLUS DOSE med: 0.125% bupivacaine with fentanyl 10 mcg/mL Infusion INFUSION: 0.125% bupivacaine and with fentanyl 2 mcg/mL Initial rate (mL/hr): 8 Post-procedure Anesthesia date START: 11/24/23 Anesthesia time START: 10:04 <Nicky Harper DO - Last Filed: 11/24/23 21:40> Pre-procedure ASA Class: III (BMI >40) Infusion Subsequent interventions: Per Desiree, she bolused the pt mid-afternoon for 5/10 pain with 3 ml via pump and increased rate to 10 ml/hr. I was called at 17:21 and 17:56 to bolus pt's epidural, but I was in the OR and unable to come at that time. Arrived about 19:30; pt appears very uncomfortable and rates pain as 7-8 with minimal relief on right side. Able to move BLE and does not say one leg is heavier than the other. Bolused epidural at 19:31 with 2% lidocaine 10 ml. I reassured pt that I would check on her again shortly after the medication has had time to kick in, and we will reassess her level of pain control and make any necessary adjustments. Vicki Followed up with pt at 19:51. She remains uncomfortable-appearing and reports no change in N/T, able to move BLE equally, and rates contraction pain 8/10. I discussed options of pulling the catheter back slightly under sterile conditions and re-bolusing vs. replacing epidural. Pt wants to avoid another epidural procedure and agrees to pulling the catheter back. Supplies gathered, pt positioned, and catheter pulled back from 15 to 14 cm and retaped. Bolus of another 10 ml of 2% lidocaine given at 20:15. Will reassess shortly. Vicki Pt reassessed at 20:35. Pt reports no change in contraction pain and agrees to new epidural placement. Epidural catheter removed at 20:57, in preparation for placement of new catheter. Vicki Post-procedure Anesthesia date END: 11/24/23 Anesthesia time END: 20:57 Post-procedure Anesthesia Assessment: Yes CV function: HR/BP stable, Yes Resp function: RR/sat/airway adequate, Yes Post-op hydration adequate, Yes Pain control adequate, Yes Nausea & vomiting absent, Yes Temperature > 36 C, Yes Mental status appropriate and Yes Anesthesia complications (Failed epidural catheter)
[2023-11-24] MEDS: FENT 2MCG/ML BUPIV 0.125% EPI 200 MCG/100 ML PLAST..BAG 8 MCG EPIDURAL ×2 (13:56→18:21)
[2023-11-24] MEDS: fentaNYL 100 MCG/2 ML INJ 50 MCG IV (18:19)
--- NOTE | 2023-11-24 21:31 | PM.AN.REGBLK ---
[facility] Pre-procedure Procedure: Continuous Lumbar Epidural for L&D (with dural puncture and intrathecal injection) Attending OB provider: Mela Stout PMH/ROS narrative: 27yo female in labor with failure of first epidural, being replaced. ASA Class: III (BMI >40) Labs: Hct 36.0 % (36-46) 11/23/23 20:20 Plt Count 280 X10^3/uL (150-400) 11/23/23 20:20 Medications: Current Medications Generic Name Dose Route Start Last Admin Trade Name Freq PRN Reason Stop Dose Admin Calcium Carbonate 1,000 mg 11/23/23 19:29 Calcium Carbonate 500 Mg Tab PO Q2HR PRN Dyspepsia Carboprost Tromethamine 250 mcg 11/23/23 19:29 Carboprost 250 Mcg/Ml Ampul IM Q90M PRN Bleeding Diphenhydramine HCl 25 mg 11/24/23 10:46 Diphenhydramine 50 Mg/Ml Vial IV Q10M PRN Pruritis Ephedrine Sulfate 10 mg 11/24/23 10:46 Ephedrine 50 Mg/Ml Vial IV Q5M PRN Blood pressure decrease more than 20% of baseline. Fentanyl 50 mcg 11/24/23 17:59 11/24/23 18:19 Fentanyl 100 Mcg/2 Ml Inj IV 50 mcg Q1H PRN Administration Pain, Severe (7-10) Oxytocin/Lactated Ringer's 30 unit in 500 mls @ 200 mls/hr 11/23/23 19:29 Oxytocin Premix IV CONT PRN Bleeding Protocol Tranexamic Acid 1,000 mg/ 100 mls @ 600 mls/hr 11/23/23 19:29 Sodium Chloride IV NOW PRN Bleeding Oxytocin/Lactated Ringer's 30 unit in 500 mls @ 2 mls/hr 11/24/23 09:55 11/24/23 10:31 Oxytocin Premix IV 2 milliunit/min TITRATE MORRIS 2 mls/hr Administration Protocol 2 MILLIUNIT/MIN FENT 2MCG/ML BUPIV 0.125% EPI 200 mcg in 100 mls @ 8 mls/hr 11/24/23 11:00 11/24/23 18:21 Fentanyl/Bupiv/Ns 2mcg/Ml - 0.125% EPIDURAL 8 mls/hr CONT MORRIS Administration Lidocaine HCl 20 ml 11/23/23 19:29 Lidocaine 1% 20 Ml INJ INTRA-OP PRN Post Delivery Metformin HCl 500 mg 11/24/23 08:00 11/24/23 09:06 Metformin Hcl 500 Mg Tablet PO Not Given 0800,1700 MORRIS Methylergonovine Maleate 0.2 mg 11/23/23 19:29 Methylergonovine 0.2 Mg/Ml Vial IM NOW PRN Bleeding Methylergonovine Maleate 0.2 mg 11/23/23 19:29 Methylergonovine 0.2 Mg Tablet PO Q6HR PRN Heavy Bleeding Misoprostol 400 mcg 11/23/23 19:29 Misoprostol 200 Mcg Tablet SL NOW PRN Bleeding Misoprostol 800 mcg 11/23/23 19:29 Misoprostol 200 Mcg Tablet ND NOW PRN Bleeding Nalbuphine HCl 2.5 mg 11/24/23 10:46 Nalbuphine 20 Mg/Ml Ampul IV Q10M PRN Pruritis Naloxone HCl 0.2 mg 11/23/23 19:29 Naloxone 0.4 Mg/Ml Vial IV Q2MIN PRN Opiate Reversal Cetirizine 10mg 1 each 11/25/23 09:00 Tablet PO DAILY [facility] Ondansetron HCl 4 mg 11/23/23 19:29 Ondansetron 4 Mg/2 Ml Inj IV Q4HR PRN Nausea And Vomiting Oxytocin 10 unit 11/23/23 19:29 Oxytocin 10 Unit/Ml Vial IM NOW PRN Bleeding Zolpidem Tartrate 5 mg 11/23/23 21:08 11/24/23 00:17 Zolpidem 5 Mg Tablet PO 5 mg BEDTIME PRN Administration Sleep Allergies: Allergies Allergy/AdvReac Type Severity Reaction Status Date / Time pineapple Allergy Intermediate Swelling Verified 11/22/23 08:05 of Lip/Tongue/Throat Procedure Insertion date: 11/24/23 Insertion time: 21:09 Prep/Local: 1% lidocaine (Chloraprep) Interspace: L3-4 Patient position: sitting Needle: 18 gauge Erwin (27g 5 Pencan intrathecal dose) Loss of resistance with: saline DASHA at (cm): 8 Catheter placed at SKIN (cm): 14 Catheter in SPACE (cm): 6 Insertion: Yes CSF, No Blood, Yes Paresthesia with insertion, No Paresthesia with injection and No Test dose reaction Initial Medications TEST DOSE time: 21:10 TEST DOSE: 1.5% lidocaine with epinephrine 1:200k (mL): 3 BOLUS DOSE time: 21:11 BOLUS DOSE (mL): 2 BOLUS DOSE med: other (Epidural bolus same as test dose; intrathecal dose of 0.75% Marcaine in dextrose, 0.5 ml, at 21:08) Infusion INFUSION: 0.125% bupivacaine and with fentanyl 2 mcg/mL Initial rate (mL/hr): 10 Subsequent interventions: Hypotension to 90s systolic with pt symptomatic, feeling like she is going to pass out and having some nausea. Treated with 10-mg boluses of ephedrine x3. Pt denies feeling her contraction at 21:28. KR Reassessed pt at 21:45. BP stable; brief episode of maternal tachycardia to 120 with movement but resolving. Restarted epidural pump. Pt had a contraction while I was present and did not feel it at all. Able to move BLE but both heavy. KR Epidural has worked well through the night. BLE heavy but pt able to move them. C/S called by Dr. Stout for failure to progress, maternal tachycardia and fever. OR prepped. Transported pt to OR, leaving 04:54 from L&D. No epidural bolus given prior to or during transport due to pt's prior hypotension and hx of syncope. OLIVIA Post-procedure Anesthesia date START: 11/24/23 Anesthesia time START: 20:58 Anesthesia date END: 11/25/23 Anesthesia time END: 04:56 Post-procedure Anesthesia Assessment: Yes CV function: HR/BP stable, Yes Resp function: RR/sat/airway adequate, Yes Post-op hydration adequate, Yes Pain control adequate, Yes Nausea & vomiting absent, Yes Temperature > 36 C, Yes Mental status appropriate and No Anesthesia complications
[2023-11-25] MEDS: FENT 2MCG/ML BUPIV 0.125% EPI 200 MCG/100 ML PLAST..BAG 8 MCG EPIDURAL (00:30)
--- NOTE | 2023-11-25 04:15 | PM.OBPNLAB ---
Date/Time Date Patient Seen: 11/24/23 Time Patient Seen: 12:55 Pain Control Pain control: epidural (Just received a bolus) Pelvic Exam Dilation (cm): 3 Effacement (%): 80 station: -1 Amniotic membrane status: Intact Contractions Contractions on admission: none Monitor mode: External Pitocin rate (mU/min): 6 Contraction frequency (min): 4 Contraction duration (min): 1 Contraction pattern: Irregular Contraction intensity: Moderate Status status: Category l Heart Rate Baseline: 140 Monitor Accelerations: Present Monitor Decelerations: Absent Monitor Variability: Moderate Assessment and Plan Assessment: induction ongoing Comments: Patient would like to wait until she gets comfortable before artificial rupture of membranes RN to call once patient was comfortable after the bolus of the epidural
--- NOTE | 2023-11-25 04:17 | PM.OBPNLAB ---
Date/Time Date Patient Seen: 11/24/23 Time Patient Seen: 15:10 Pain Control Pain control: epidural (working well) Pelvic Exam Dilation (cm): 3 Effacement (%): 80 station: -1 Amniotic membrane status: Intact Contractions Contractions on admission: none Monitor mode: External Pitocin rate (mU/min): 10 Contraction frequency (min): 3 Contraction duration (min): 1 Contraction pattern: Regular Contraction intensity: Moderate Status status: Category l Heart Rate Baseline: 135 Monitor Accelerations: Present Monitor Decelerations: Absent Monitor Variability: Moderate Assessment and Plan Assessment: induction ongoing Comments: Plan: AROM with copious clear amniotic fluid Peanut ball, side to side Expectant management to
--- NOTE | 2023-11-25 04:19 | PM.OBPNLAB ---
Date/Time Date Patient Seen: 11/24/23 Time Patient Seen: 17:55 Pain Control Pain control: epidural (Patient feeling contractions) Pelvic Exam Dilation (cm): 5 Effacement (%): 80 station: -1 Amniotic membrane status: Intact Contractions Contractions on admission: none Monitor mode: External Pitocin rate (mU/min): 10 Contraction frequency (min): 3 Contraction pattern: Regular Contraction intensity: Moderate Status status: Category l Heart Rate Baseline: 140 Monitor Accelerations: Present Monitor Decelerations: Absent Monitor Variability: Moderate Assessment and Plan Assessment: induction ongoing Comments: Plan: Turn Pitocin off until comfortable with epidural
--- NOTE | 2023-11-25 04:21 | PM.OBPNLAB ---
Date/Time Date Patient Seen: 11/25/23 Time Patient Seen: 04:21 Pain Control Pain control: epidural Comments: New epidural placed at 2100. Pt comfortable now except for pressure Called to see pt due to maternal/ tachycardia Pelvic Exam Dilation (cm): 7 Effacement (%): 80 station: -1 Amniotic membrane status: Ruptured Contractions Contractions on admission: none Monitor mode: External Pitocin rate (mU/min): 2 Contraction frequency (min): 3 Contraction duration (min): 1 Contraction pattern: Regular Contraction intensity: Strong/Firm Status status: Category l Heart Rate Baseline: 165 Monitor Accelerations: Present (small) Monitor Decelerations: Variable Monitor Variability: Minimal Assessment and Plan Assessment: active labor and induction ongoing Comments: Plan: Discussed with patient and her Jeovany concern with mom and baby's elevated heartrate and very slow cervical change, now with swelling of the cervix Recommend Primary C section The risks, benefits, and alternatives to the procedure were explained to the patient. The risks including bleeding, infection, injury to the bowel, bladder, or ureters. She understands these risks and agrees to proceed. A full par Q was held and consent form was signed Peds notified 2 g of Ancef and 500 mg of azithromycin ordered OR team including anesthesia notify
[2023-11-25] MEDS: CEFAZOLIN 2 GM/100 ML PREMIX 100 ML IV (05:09)
[2023-11-25] MEDS: AZITHROMYCIN 500 MG in DEXTROSE 5% IN WATER 250 ML 250 MG IV (05:10)
--- NOTE | 2023-11-25 05:26 | SUR.OPER ---
Supine on Padded OR bed, head on pillow, safety belt at thigh, arms secured on padded arm boards at <90 degrees abduction. Bump under right buttock. Legs uncrossed with pillow under knees, gel pad to heels, tape over blanket to lower legs.
[2023-11-25] MEDS: ACETAMINOPHEN IV 1,000 MG/100 ML VIAL 400 MG IV (06:02)
--- NOTE | 2023-11-25 06:24 | PM.OBCS.1 ---
Operative Date/Time/Diagnoses Date of procedure: 11/25/23 Time of procedure: 06:24 Pre-op diagnosis: 39-3/7 weeks gestation Stage I arrest of labor and maternal tachycardia Post-op diagnosis: same Procedure & Clinicians Procedure: Primary low-transverse section Same procedure as scheduled: Yes Indications: 27-year-old 2 para 1 at 39 and 3/7 weeks gestation with a stage I arrest of labor. Patient at 7 cm for 7 hours. and maternal tachycardia. Decreased [id number]-[id number] variability. Swelling of the cervix. Surgeon: Mela Stout Click Yes if Unassisted: No Interventional Neuroradiologist: Radha Neff Reason for Interventional Neuroradiologist: The music assistant was necessary to retract upon entry into the abdomen and uterus. She assisted with delivery of the with fundal pressure. She assisted with closure with retraction, clipping of suture, and closure of the contralateral fascia. Anesthesia Type: Epidural (With Duramorph) Operative Notes Findings: Live female infant in the direct occiput posterior presentation Hyper extended neck Nuchal cord x1 Normal uterus, tubes, and ovaries Closure Type: primary Specimen(s): cord blood, placenta and other ( and maternal sides of the placenta cultures) Intraoperative meds administered: Acetaminophen, Duramorph, Ketorolac and Pitocin Applied: Catheter (To continuous drainage) Estimated Blood Loss (mL): 500 Blood products transfused: none Procedure in detail: Informed consent was obtained. The patient was taken to the operating room where she was placed in the dorsal supine position with a leftward tilt. She was prepped and draped in the usual sterile fashion. A timeout was performed. After epidural analgesia was found to be adequate, a Pfannenstiel skin incision was made 2 fingerbreadths above the pubic symphysis and carried through to the underlying layer fascia. The fascia was nicked in the midline, and the incision extended bilaterally with the Guzman scissors. The superior aspect of the fascial incision was grasped with a Marvin clamps, elevated, and the underlying rectus muscles dissected off sharply and bluntly. Attention was then turned to the inferior aspect of this incision which in a similar fashion was grasped with a Marvin clamps, elevated, and the underlying rectus muscles dissected off sharply and bluntly. The rectus muscles were in the midline. The peritoneum was identified, grasped between 2 hemostats, and entered sharply with the Metzenbaum scissors. This incision was extended superiorly and inferiorly with good visualization of the bladder. The bladder blade was inserted. The vesicouterine peritoneum was identified, grasped with the pickup, and entered sharply with the Metzenbaum scissors. This incision was extended bilaterally, and the bladder flap was created digitally. The bladder blade was reinserted. The lower uterine segment was incised in a transverse fashion with the scalpel. Upon entering the amniotic sac there was a small amount of clear amniotic fluid. The 's head was delivered without difficulty. The nose and mouth were suctioned with bulb suction. The remainder of the body delivered without difficulty. The cord was double clamped and cut after 1 minute. The was handed off to waiting RN and RT. The placenta was delivered manually. The uterus was cleared of all clots and debris. Cultures of the maternal and side of the placenta were obtained. The uterine incision was repaired with #1 chromic in a running interlocking fashion, and a second layer the same suture was used for an imbricating layer. Hemostasis was achieved. The tubes and ovaries were examined and were found to be normal. The gutters were cleared of all clots and debris. The bladder flap was reapproximated using 2-0 Vicryl in a running fashion. The parietal peritoneum was closed using 2-0 Vicryl in a running fashion. The fascia was reapproximated using 0 Vicryl in a running fashion. The subcutaneous layer was copiously irrigated with warm normal saline. Five simple interrupted sutures of 3-0 Vicryl were placed to reapproximate the subcutaneous layer. The skin was closed with 4-0 Monocryl in a subcuticular fashion. Steri-Strips were placed. An Aquacel dressing was placed. The uterus was expressed of a small amount of old blood. Sponge, lap, and instrument counts were correct x-2. The patient tolerated the procedure well, and was taken to PACU in stable condition. Complications: none Baby 1: Infant Gender: Female Presentation: vertex Position: Left Occiput Posterior (Neck hyperextended) Placental Delivery Description: Expressed Cord Vessel Description: 3 Vessels, Nuchal Cord (x1) and Clamped/Cut (After 1 minute) score (1 min): 8 score (5 min): 8 weight: 7 lb 5.8 oz Post-operative Condition: stable Disposition: PACU Aftercare: routine postop
[2023-11-25 06:25] VITALS: BP 99/72; PULSE 111; RESP 20; TEMP 38.3; O2SAT 100
[2023-11-25 06:29] VITALS: BP 88/44; PULSE 109; RESP 20; O2SAT 99
[2023-11-25 06:34] VITALS: BP 97/52; PULSE 100; RESP 26; O2SAT 99
[2023-11-25 06:39] VITALS: BP 100/54; PULSE 99; RESP 17; O2SAT 99
[2023-11-25 06:44] VITALS: BP 92/45; PULSE 100; RESP 19; TEMP 37.5; O2SAT 98
[2023-11-25] MEDS: LACTATED RINGERS 1,000 ML 100 ML IV (06:44)
[2023-11-25] MEDS: KETOROLAC 30 MG/ML VIAL IV ×2 (12:54→18:45)
[2023-11-25] MEDS: ACETAMINOPHEN 325 MG TABLET 650 MG PO ×2 (12:54→20:39)
[2023-11-25] MEDS: METFORMIN HCL 500 MG TABLET PO (17:17)
[2023-11-26] MEDS: KETOROLAC 30 MG/ML VIAL IV (00:50)
[2023-11-26] MEDS: ACETAMINOPHEN 325 MG TABLET 650 MG PO ×2 (03:00→09:19)
[2023-11-26 06:11] LABS: Add Manual Diff / Slide Review NO; Basophils Absolute Auto 100 /uL (0-100); Basophils Percent Auto 0.4 % (0-2); Eosinophils Absolute Auto 100 /uL (0-450); Eosinophils Percent Auto 0.4 % (2-4); Hematocrit 28.7 % (36-46); Hemoglobin 9.8 g/dL (12.0-16.0); Lymphocytes Absolute Auto 3000 /uL (1100-4500); Lymphocytes Percent Auto 14.7 % (25-40); Mean Corpuscular Hemoglobin 30.2 PG (26-34); Mean Corpuscular Volume 88.9 fL (80-100); Monocytes Absolute Auto 3000 /uL (0-900); Monocytes Percent Auto 14.4 % (3-14); Neutrophils Absolute Auto 14400 /uL (1500-7000); Neutrophils Percent Auto 70.1 % (50-75); Platelet Count 244 X10^3/uL (150-400); Red Blood Cell Count 3.23 X10^6/uL (4.0-5.2); Red Cell Distribution Width 14.2 % (11.6-14.8); White Blood Cell Count 20.5 X10^3/uL (4.5-11.0)
[2023-11-26] MEDS: PRENATAL VIT,CALC/IRON/FOLIC 1 TABLET 1 TAB PO (07:45)
[2023-11-26] MEDS: DOCUSATE 100 MG CAPSULE PO (07:46)
[2023-11-26] MEDS: IBUPROFEN 600 MG TABLET PO ×2 (07:46→13:12)
[2023-11-26] MEDS: METFORMIN HCL 500 MG TABLET PO (07:46)
[2023-11-26] MEDS: LANOLIN OINT 7 GM 1 APPLIC TOP (13:12)
[2023-11-26] MEDS: OXYCODONE IR 5 MG TABLET PO (13:56)
--- NOTE | 2023-12-20 00:08 | PM.OBDS.1 ---
Discharge Providers Provider Date of admission: 11/23/23 19:16 Discharge Date: 11/26/23 Primary care physician: Anisha JAFFE Provider Consults: 11/23/23 19:29 Consult to Anesthesiology Urgent Comment: Consulting Provider: Anesthesiologist Reason for consultation: Epidural 11/25/23 12:44 Consult to Hand Touch Up Painter Routine Comment: Discharge provider: Mela Stout MD Summary Hospital Course Date Patient Seen: 12/26/23 Time Patient Seen: 14:00 Diagnoses: 39-2/7 weeks gestation Cervical ripening with Cervidil Pitocin induction of labor Epidural analgesia Artificial rupture of membranes Stage I arrest of labor Elevated maternal heart rate in labor Primary section Hospital Course: Patient is a 27-year-old 2 para 2 who was admitted on November 23, 2023 for Cervidil cervical ripening. She was at 39-,2/7 weeks gestation. She received 1 Cervidil. She received an epidural for pain management. Artificial rupture of membranes were performed. She received Pitocin augmentation. On November 24, 2023 at 1:00 p.m. she was 3 cm 80% effaced and-1 station. At 3:10 p.m., her cervix was unchanged. At 5:55 p.m. she was 5 cm 80% and-1 station. On 11/24 at 4:20 a.m. she had made slow progression to 7 cm/80%/-1 station. At that time there was swelling of the cervix and increased maternal and heart rate a decision was made to proceed to a primary low-transverse section. She underwent this procedure without complication. Her postoperative course was unremarkable. On postop day # 1 she was tolerating a diet, no nausea or vomiting, pain well controlled, voiding without the catheter, ambulating independently, and was going well. She was discharged home on postop day #1. Peripartum Data Delivery Method: Section Procedures: Cervidil cervical ripening Epidural analgesia Artificial rupture of membranes Pitocin augmentation of labor Primary low-transverse section complications: none Traver 1: Gender: Female Disposition of : home Status at Discharge Cognitive/behavioral status at discharge: oriented Functional status at discharge: independent ambulation Overall status at discharge: patient is progressing back to baseline Time Spent with Patient Time attestation: Total time spent providing and/or coordinating discharge services: Time spent: Less than 30 minutes Objective Labs 11/26/23 05:49 Exam Vital Signs (past 8 hours): Oxygen Delivery Method Room Air Narrative Exam Narrative: Generally: Patient is sitting up in bed, holding , no acute distress Lungs: Clear to auscultation bilaterally Cardiovascular: Regular rate and rhythm Fundus: Firm at U -1 Incision: Clean dry and intact with Aquacel dressing Extremities: Trace edema, negative Homans Discharge Plan Discharge Plan Patient Disposition: Home Provider Discharge Comment: Call with fever, chills, or redness or drainage around the incision Call with bleeding more than a pad in an hour Ibuprofen 600 mg every 6 hours as needed Tylenol 650 mg every 6 hours as needed Push oral fluids Check some fasting blood sugars and bring to appointments Discharge orders & Medications Prescriptions: New oxycodone 5 mg tablet 5 mg PO Q6H PRN (Reason: pain) Qty: 20 0RF Continued PNV cmb#95-ferrous fumarate-FA [ Multivitamins] 28 mg iron- 800 mcg tablet 1 tab PO DAILY cholecalciferol (vitamin D3) 25 mcg (1,000 unit) capsule 25 mcg PO DAILY Double Electric Breast Pump 1 ea topical .prn Qty: 1 0RF metformin 500 mg tablet 500 mg PO BIDWMEAL Qty: 60 6RF Discontinued sumatriptan succinate [Imitrex] 100 mg tablet See Rx Instructions PO .COMPLEX Qty: 20 6RF Rx Instructions: take 1 tab at onset of headache; if no relief, may repeat 1 tab after at least 2 hrs; max = 2 tabs/24 hrs PO No Action (DME) blood-glucose meter [Blood Glucose Monitoring] Kit See Rx Instructions .MEDSUPPLY Qty: 1 0RF Rx Instructions: please chk AM fasting blood sugar, and 1 hour after brkfst, lunch and dinner (DME) lancets Misc See Rx Instructions miscellaneous .MEDSUPPLY Qty: 100 0RF Rx Instructions: please chk AM fasting blood sugar, and 1 hour after brkfst, lunch and dinner (DME) FreeStyle Lite Strips Strip See Rx Instructions .ROUTE .COMPLEX Qty: 100 1RF Dose Instruction: PLEASE CHECK MORNING FASTING BLOOD SUGAR AND 1 HOUR AFTER BREAKFAST, LUNCH AND DINNER Rx Instructions: PLEASE CHECK MORNING FASTING BLOOD SUGAR AND 1 HOUR AFTER BREAKFAST, LUNCH AND DINNER Pharmacist Comment: patient has home medication in the pharmacy. Follow up/Referrals: Robin Bamu MD [Physician] - (My office will call you on Tuesday with an appointment time with Dr. Baum for an incision check on Tuesday) Diet/Activity/Treatments Diet: Regular Activity: No heavy lifting Nothing in the vagina for 6 weeks Skin/Wound/Dressing Care Report to your healthcare provider any signs of infection, such as:: chills, fever, increased pain, unusual drainage and unusual redness Dressing: Leave in place Visit Report/Discharge Packet Instructions: DI for , DI for Prescription Opioid Use Stand Alone Forms: Patient Portal/API, Stroke Signs & Symptoms Discharge Data Primary Care Provider: ProviderAnisha
== END 2023-11-26 14:20 | disposition home or self-care (01) | DRG 788 ==
PROVIDERS: Student in an Organized Health Care Education/Training Program; Admitting Provider Obstetrics & Gynecology; Referring Provider Obstetrics & Gynecology; Visit Provider Obstetrics & Gynecology
PROC: 10D00Z1 Extraction of Products of Conception, Low, Open Approach (ICD-10-PCS; CPT 59514; principal; 2023-11-25 07:00)
DX: O24.425 Gestational diabetes mellitus in childbirth, controlled by oral hypoglycemic drugs (principal); Z3A.39 39 weeks gestation of pregnancy; Z37.0 Single live birth; Z67.40 Type O blood, Rh positive; O99.892 Other specified diseases and conditions complicating childbirth; O76 Abnormality in fetal heart rate and rhythm complicating labor and delivery; R00.0 Tachycardia, unspecified
CPT/HCPCS: 36415; 59050; 59200; 59510; 59514; 85025; 86850; 86900; 86901; 87070; 87075; 87205; G0379; J0134; J0690; J1100; J1885; J2274; J2405; J2590; J3010

== ENCOUNTER 2023-12-18 16:41 | Emergency (ER) | payer OTHER, SELFPAY ==
[2023-12-18] VITALS (8 sets, daily range): BP systolic 100–118; BP diastolic 53–72; PULSE 77–87; RESP 18; TEMP 37.2; O2SAT 98–100; BMI 40.8
[2023-12-18 17:20] LABS: Appearance Urine UA CLOUDY; Bilirubin Urine UA NEGATIVE (NEGATIVE); Color Urine UA RED; Glucose Urine UA NEGATIVE (Negative); Ketones Urine UA NEGATIVE (NEGATIVE); Leukocyte Esterase Urine UA 1+ (NEGATIVE); Nitrite Urine UA NEGATIVE (Negative); Occult Blood Urine UA 3+ (Negative); Protein Urine UA TRACE (Negative); Urobilinogen Urine UA 0.2 E.U./dL (0.2)
[2023-12-18 17:32] LABS: Add Manual Diff / Slide Review NO; Basophils Absolute Auto 100 /uL (0-100); Eosinophils Absolute Auto 600 /uL (0-450); Eosinophils Percent Auto 8.7 % (2-4); Hematocrit 33.5 % (36-46); Hemoglobin 11.2 g/dL (12.0-16.0); Lymphocytes Absolute Auto 2100 /uL (1100-4500); Lymphocytes Percent Auto 30.3 % (25-40); Mean Corpuscular HGB Conc 33.5 % (30-36); Mean Corpuscular Hemoglobin 29.9 PG (26-34); Mean Corpuscular Volume 89.1 fL (80-100); Monocytes Absolute Auto 800 /uL (0-900); Neutrophils Absolute Auto 3300 /uL (1500-7000); Platelet Count 391 X10^3/uL (150-400); Red Blood Cell Count 3.76 X10^6/uL (4.0-5.2); Red Cell Distribution Width 13.5 % (11.6-14.8); White Blood Cell Count 6.8 X10^3/uL (4.5-11.0)
[2023-12-18 17:41] LABS: BUN Creatinine Ratio 14.5 (6-22); Blood Urea Nitrogen 11 mg/dL (7-17); Calcium 9.4 mg/dL (8.4-10.2); Carbon Dioxide 26 mmol/L (22-32); Chloride 104 mmol/L (98-107); Estimated Glomerular Filt Rate > 60 mL/min (>60); Glucose 92 mg/dL (70-100); HEMOLYSIS < 15 (0-50); Sodium 137 mmol/L (137-145)
[2023-12-18 17:44] LABS: Bacteria Urine Occasional (0-1); Culture Indicated Urine Specimen Cultured; RBC Urine >100/HPF (0-5/HPF); Squamous Epithelial Cell Urine 0-1 /HPF (0-5/HPF); Urine Volume 10mL (spun); WBC Urine 1-5/HPF (0-5/HPF)
--- NOTE | 2023-12-18 18:02 | DI.US.S_ITS ---
PROCEDURE: US PELVIC COMPLETE INDICATIONS: abnormal post vaginal bleeding TECHNIQUE: Real-time scanning was performed of the pelvic organs, with image documentation. Additional endovaginal scanning was necessary due to incomplete visualization of the adnexal and endometrial structures by transabdominal scanning. COMPARISON: None. FINDINGS: Uterus: Uterus is anteverted and enlarged in size at 12.4 x 7.8 x 5.7 cm. The myometrium is homogeneous. The endometrium measures 8 mm combined thickness. Endometrium is homogeneous. Ovaries: The right ovary measures flow 3.3 x 1.4 x 2.3 cm, with a calculated ovarian volume of 5.4 cc. The left ovary measures 3.3 x 1.5 x 2.6 cm, with a calculated ovarian volume of 7 cc. The ovaries have a normal sonographic appearance. Less than 12 follicles can be seen in each ovary. No adnexal masses are seen. Other: No pathologic free abdominal or pelvic fluid. IMPRESSION: Homogeneous appearance of the endometrium, which is not thickened. Findings do not suggest retained products of conception. We strive to produce accurate, complete, and clear reports of imaging services. To assist us in improving patient care, this report was composed using standard report templates and voice recognition software. Therefore, it may contain abnormal punctuation, insertions and/or omissions. Occasional wrong-word or sound-alike substitutions may occur. Though we review the report and make efforts to correct it, we do recommend that the report be read carefully in proper context to recognize any text inaccuracies. Dictated by: Arun Gordillo M.D. on 12/18/2023 at 19:39 Approved by: Arun Gordillo M.D. on 12/18/2023 at 19:40
--- NOTE | 2023-12-18 18:32 | ED_ITS ---
HPI - General Adult General Chief complaint: Vaginal Bleeding Stated complaint: Bleeding after 3wks back Time Seen by Provider: 12/18/23 17:56 Source: patient Mode of arrival: Ambulatory History of Present Illness HPI narrative: 27-year-old female. Three weeks status post who is here for evaluation of vaginal bleeding. Patient states she did have vaginal bleeding after the but it has been improving until just over the past 24 hours when she had a large increase. Has been bleeding through multiple pads. No fevers. No abdominal pain. No urinary symptoms. No change in bowel habits. Related Data Home Medications Medication Instructions Recorded Confirmed cholecalciferol (vitamin D3) 25 25 mcg PO DAILY 04/04/23 11/23/23 mcg (1,000 unit) capsule vit no.95-ferrous 1 tab PO DAILY 04/04/23 11/22/23 fumarate 28 mg-folic acid 800 mcg tablet ( Multivitamins) Previous Rx's Medication Instructions Recorded blood-glucose meter (Blood Glucose #1 ea 09/07/23 Monitoring kit) lancets #100 ea 09/07/23 Double Electric Breast Pump 1 ea topical .prn #1 ea 09/21/23 metformin 500 mg tablet 500 mg PO BIDWMEAL #60 tabs 09/21/23 blood sugar diagnostic (FreeStyle #100 strips 11/02/23 Lite Strips) oxycodone 5 mg tablet 5 mg PO Q6H PRN pain #20 tabs 11/26/23 Allergies Allergy/AdvReac Type Severity Reaction Status Date / Time pineapple Allergy Intermediate Swelling Verified 11/22/23 08:05 of Lip/Tongue/Throat Review of Systems Review of Systems Narrative: See HPI Patient History Medical History Allergies Anxiety Hypothyroidism Migraine without aura Eczema Environmental allergies Surgical History [place] teeth extracted (~2021) Family History Father Diabetes mellitus Mother Anemia Obesity Cardiac anomaly Grandmother Diabetes mellitus Sister Cerebral palsy Social History marital status: number of children: 1 household members: spouse and children lives independently: Yes caregiver/support person: Yes housing: condominium pets and animals: Yes (dog) education level: high school occupational status: employed current occupational exposures/hazards: No special nicole needs: No travel history: recent seatbelt use: always water heater temp set < 120 deg: Yes working smoke detector in home: Yes fire extinguisher in home: No carbon monox detector in home: Yes firearms in home: Yes firearms unloaded and locked: Yes do you feel safe at home: Yes Smoking Status: Never smoker second hand exposure: No alcohol intake: former substance use type: does not use during the past year weight has: decreased > 10 lbs well-balanced diet: about half the time daily servings fruits/ve-4 caffeine: Yes (occasional te) Type(s) of exercise: aerobic and weight lifting Smoking Status: Never smoker alcohol intake frequency: a few times a month Substance Use Type: does not use Exam Initial Vital Signs Initial Vital Signs: Vital Signs Temperature 99 F 12/18/23 16:54 Pulse Rate 77 12/18/23 16:54 Respiratory Rate 18 12/18/23 16:54 Blood Pressure 118/72 12/18/23 16:54 Pulse Oximetry 100 12/18/23 16:54 Oxygen Delivery Method Room Air 12/18/23 16:54 Const General: cooperative and comfortable HENMT Head: normal to inspection and normocephalic Resp Effort & Inspection: normal respiratory effort Cardio Rate: regular rate GI Inspection: non-distended Skin General: no rashes or lesions noted Course Orders Ordered: ED Orders 12/18/23 17:00 Urinalysis and Microscopic Stat Urine Culture Stat 12/18/23 17:20 Type and Screen Stat 12/18/23 17:22 Basic Metabolic Panel Stat Complete Blood Count AUTO DIFF Stat 12/18/23 18:02 US pelvic complete Stat Vital Signs Vital signs: Vital Signs - 8 hr 12/18/23 16:54 12/18/23 17:07 12/18/23 17:08 Temperature 99 F Pulse Rate 77 87 81 Respiratory Rate 18 Blood Pressure 118/72 Pulse Oximetry 100 100 98 Oxygen Delivery Method Room Air 12/18/23 17:08 12/18/23 17:30 12/18/23 18:00 Temperature Pulse Rate 77 82 Respiratory Rate Blood Pressure 108/64 Pulse Oximetry 99 98 Oxygen Delivery Method 12/18/23 18:17 12/18/23 18:17 12/18/23 18:30 Temperature Pulse Rate 86 81 Respiratory Rate Blood Pressure 102/64 Pulse Oximetry 98 99 Oxygen Delivery Method 12/18/23 19:24 Temperature Pulse Rate 79 Respiratory Rate 18 Blood Pressure 100/53 L Pulse Oximetry 99 Oxygen Delivery Method Room Air Medical Decision Making Lab Data Lab results reviewed: Yes I reviewed the patient's lab results. 12/18/23 17:22 12/18/23 17:22 Labs: Lab Results 12/18/23 12/18/23 12/18/23 Range/Units 17:00 17:20 17:22 WBC 6.8 (4.5-11.0) X10^3/uL RBC 3.76 L (4.0-5.2) X10^6/uL Hgb 11.2 L (12.0-16.0) g/dL Hct 33.5 L (36-46) % MCV 89.1 (80-100) fL MCH 29.9 (26-34) PG MCHC 33.5 (30-36) % RDW 13.5 (11.6-14.8) % Plt Count 391 (150-400) X10^3/uL Neut % (Auto) 48.0 L (50-75) % Lymph % (Auto) 30.3 (25-40) % [place] % (Auto) 12.0 (3-14) % Eos % (Auto) 8.7 H (2-4) % Baso % (Auto) 1.0 (0-2) % Neut # (Auto) 3300 (9879-2619) /uL Lymph # (Auto) 2100 (9218-9470) /uL [place] # (Auto) 800 (0-900) /uL Eos # (Auto) 600 H (0-450) /uL Baso # (Auto) 100 (0-100) /uL Sodium 137 (137-145) mmol/L Potassium 4.0 (3.4-5.1) mmol/L Chloride 104 (98-107) mmol/L Carbon Dioxide 26 (22-32) mmol/L BUN 11 (7-17) mg/dL Creatinine 0.76 (0.52-1.04) mg/dL Estimated GFR > 60 (>60) mL/min BUN/Creatinine Ratio 14.5 (6-22) Glucose 92 (70-100) mg/dL Calcium 9.4 (8.4-10.2) mg/dL Urine Color Red Urine Appearance Cloudy Urine pH 7.0 (4.5-8.0) Ur Specific [place]cdonald 1.010 (1.000-1.035) Urine Protein Trace H (Negative) Urine Glucose (UA) Negative (Negative) g/dL Urine Ketones Negative (NEGATIVE) Urine Occult Blood 3+ H (Negative) Urine Nitrate Negative (Negative) Urine Bilirubin Negative (NEGATIVE) Urine Urobilinogen 0.2 (0.2) E.U./dL Ur Leukocyte Esterase 1+ H (NEGATIVE) Urine RBC >100/hpf H (0-5/HPF) Urine WBC 1-5/hpf (0-5/HPF) Ur Squamous Epith Cells 0-1 /hpf (0-5/HPF) Urine Bacteria Occasional (0-1) (None) Ur Culture Indicated? Specimen cultured Vol Urine Centrifuged 10ml (spun) Blood Type O Positive Antibody Screen Negative Point of Care Testing Test Results Negative Urine Dip Bedside Urine Glucose Negative Bedside Urine Bilirubin - Negative Bedside Urine Ketone - Negative Urine Specific Mcdonald 1.010 Bedside Urine Occult Blood - Negative Bedside Urine Protein +/- 15 Bedside Urine Urobilinogen - Negative Bedside Urine Nitrite - Negative Bedside Urine Leukocytes + 70 Esterase Point of care testing: Point of Care Testing Test Results Negative Urine Dip Bedside Urine Glucose Negative Bedside Urine Bilirubin - Negative Bedside Urine Ketone - Negative Urine Specific Mcdonald 1.010 Bedside Urine Occult Blood - Negative Bedside Urine Protein +/- 15 Bedside Urine Urobilinogen - Negative Bedside Urine Nitrite - Negative Bedside Urine Leukocytes + 70 Esterase Imaging Data US - SOFTWARE INSTALLATION ENGINEER: Radiologist's Impression: PROCEDURE: US PELVIC COMPLETE INDICATIONS: abnormal post vaginal bleeding TECHNIQUE: Real-time scanning was performed of the pelvic organs, with image documentation. Additional endovaginal scanning was necessary due to incomplete visualization of the adnexal and endometrial structures by transabdominal scanning. COMPARISON: None. FINDINGS: Uterus: Uterus is anteverted and enlarged in size at 12.4 x 7.8 x 5.7 cm. The myometrium is homogeneous. The endometrium measures 8 mm combined thickness. Endometrium is homogeneous. Ovaries: The right ovary measures flow 3.3 x 1.4 x 2.3 cm, with a calculated ovarian volume of 5.4 cc. The left ovary measures 3.3 x 1.5 x 2.6 cm, with a calculated ovarian volume of 7 cc. The ovaries have a normal sonographic appearance. Less than 12 follicles can be seen in each ovary. No adnexal masses are seen. Other: No pathologic free abdominal or pelvic fluid. IMPRESSION: Homogeneous appearance of the endometrium, which is not thickened. Findings do not suggest retained products of conception. MDM Narrative Medical decision making narrative: Not anemic to the point where she would need a blood transfusion. She has a benign exam. Unremarkable vital signs. Ultrasound shows no retained products of conception. Discussed all this with the patient. We discussed calling her OB provider for a follow-up. Discussed return precautions and follow-up instructions. She expressed understanding and agreement with plan. Discharge Plan Departure Patient Disposition: Home Clinical Impression: Vaginal bleeding Instructions: DI for Vaginal Bleeding Activity Restrictions/Additional Instructions: Your workup here in the emergency department is very reassuring. There was no signs of any retained products. Recommend that you keep all of your scheduled medical appointments. Return to the emergency department for new or worsening symptoms. Prescriptions: No Action (DME) blood-glucose meter [Blood Glucose Monitoring] Kit See Rx Instructions .MEDSUPPLY Qty: 1 0RF Rx Instructions: please chk AM fasting blood sugar, and 1 hour after brkfst, lunch and dinner (DME) lancets Misc See Rx Instructions miscellaneous .MEDSUPPLY Qty: 100 0RF Rx Instructions: please chk AM fasting blood sugar, and 1 hour after brkfst, lunch and dinner (DME) FreeStyle Lite Strips Strip See Rx Instructions .ROUTE .COMPLEX Qty: 100 1RF Dose Instruction: PLEASE CHECK MORNING FASTING BLOOD SUGAR AND 1 HOUR AFTER BREAKFAST, LUNCH AND DINNER Rx Instructions: PLEASE CHECK MORNING FASTING BLOOD SUGAR AND 1 HOUR AFTER BREAKFAST, LUNCH AND DINNER PNV cmb#95-ferrous fumarate-FA [ Multivitamins] 28 mg iron- 800 mcg tablet 1 tab PO DAILY cholecalciferol (vitamin D3) 25 mcg (1,000 unit) capsule 25 mcg PO DAILY Double Electric Breast Pump 1 ea topical .prn Qty: 1 0RF metformin 500 mg tablet 500 mg PO BIDWMEAL Qty: 60 6RF oxycodone 5 mg tablet 5 mg PO Q6H PRN (Reason: pain) Qty: 20 0RF Referrals: ProviderAnisha [Primary Care Provider] - Stand Alone Forms: Patient Portal/API
== END 2023-12-18 20:03 | disposition home or self-care (01) ==
PROVIDERS: Emergency Medicine; Emergency Provider Emergency Medicine
DX: O72.1 Other immediate postpartum hemorrhage (principal)
CPT/HCPCS: 36415; 76830; 76856; 80048; 81001; 81003; 81025; 85025; 86850; 86900; 86901; 87086; 93975; 99283; 99284

== ENCOUNTER → 2024-07-24 14:00 | Outpatient (CLI) | payer OTHER, SELFPAY ==
--- NOTE | 2024-07-25 17:08 | DIAB.GDFU ---
Follow-up Gestational Diabetes Assessment Name: Jeane Encarnacion Date: 07/24/24 Time: 215-3p Dx: Hyperlipidemia Jeane presents for follow-up with HLD dx and 8 months, complicated by GDM. Endorses initial low carb diet resulted in reduced . has been seeing prn. States she is now eating how she was previously. Also endorses increased hunger with pumping breastmilk. This has resulted in wt gain back to pre wt, reported 236#. Was down to 210# during per report. Did not complete OGTT , but did complete some lab work per report. Was previously taking 1TBS of coconut oil per day, but has d/c'd this since HLD diagnosis. States Mediterranean diet was recommended. Schedule with her older daughter and baby has complicated her eating schedule per report. Diet recall: wake at 530a and 8a for baby feeding 11a-12p: cereal with nutritional yeast and milk OR [place] hot chocolate with oats for reported help with milk production 1-2p: leftovers or grilled cheese +/- veggies 530-6p: veggies pasta x 1.5-2c or rice x 1-1.5c with protien OR pizza sn: nothing or cookies or peanuts 90-120oz water occasional ETOH q 2-3 weeks 1 serving or less Anthropometrics: Ht: 61 Wt: 236# reported 07/2024 Prepregnancy wt: 236# Physical Activity: None at this time Self-Monitoring Blood Glucose: None Pertinent Labs: None available for review Nutrition Rx: Carbohydrates: 210g per day RIVER GUIDE for women Meal: 45-60g Snack: 15-30g Nutrition Diagnosis: Inconsistent energy intake r/t current schedule impacting eating times aeb diet recall Excessive CHO intake r/t concerns for reduced milk production aeb pt report and diet recall Physical inactivity r/t limited time for activity and avoiding going outside d/t allergies aeb pt report Intervention: This participant was very receptive. Provided appropriate educational handouts. Discussed the following topics: Meal timing, pairing macros and portions Encouraged high fiber options for Mediterranean diet and milk production Easy breakfast ideas Physical activity Goals: Incorporate breakfast Try to eat small freq meals q 3-4 hours Keep CHo to 1c at meals Restart home workouts Follow-up: BRISSA SWARTZ follow-up prn Tiny Shabazz RDN, [facility] Certified Diabetes Care and Quality Assurance/R&D Lab Technician T: [phone] F: [phone] [email or web address] Thank you for this referral
== END ==
LOC: DIET 15:11
PROVIDERS: Referring Provider Nurse Practitioner Family
DX: E78.5 Hyperlipidemia, unspecified (principal); Z86.32 Personal history of gestational diabetes; Z71.3 Dietary counseling and surveillance
CPT/HCPCS: 97803

== ENCOUNTER → 2024-10-19 11:04 | Outpatient (CLI) | payer OTHER, SELFPAY ==
--- NOTE | 2024-11-16 10:28 | DIAB.MNTFU ---
Follow-up Diabetes Medical Nutrition Therapy Assessment Name: Jeane Encarnacion Date: 10/19/24 Time: a Dx: Hyperlipidemia Jeane presents for follow-up virtually via [facility] with HLD dx and 11 months, complicated by GDM. Tried to do 5K with family, running and walking. Prepared for 5k. Had first menstrual period 5k 2 weeks ago. Trained for 2-3 weeks for 5k. Trying to eat with child, at least 3 x per day. Eating breakfast more often. Just recently stopped pumping breastmilk. Hunger reduced since d/c of pumping. Eats maybe two meals per day. Use to eat more frequently while . Wants easy breakfast. Diet recall: 930-10a: eggs, 1-2 toast, avocado with water or milk Sn: nothing or cereal or smoothie with vanilla Taiwanese yogurt with fruit puree and spinach 530p: 1.5c rice, 1/2 can beans, with protein (shrimp/chx/ground beef) +/- peppers/onions/celery/carrots Sn: nothing or ice cream x 2/3c 90-120oz water Occasional ETOH. Sometimes craves sweet drink, ie peach ice tea or soda or sf juice dx with HTN. Anthropometrics: Ht: 61 Wt: none/unknown 236# reported 07/2024 Prepregnancy wt: 236# Physical Activity: Just finished 5K. Plans to restart gym. Has access to [employer]. Self-Monitoring Blood Glucose: None Past Medical History: (Last Updated 01/10/24 @ 14:55 by Robin Baum MD) Allergies Anxiety Eczema Environmental allergies History of gestational diabetes Hypothyroidism during 1st , resolved after delivery Migraine without aura infrequent, usually managed with Excedrin and rest Nutrition Rx: Carbohydrates: 210g per day [employer] for women Meal: 45-60g Snack: 15-30g Nutrition Diagnosis: Inconsistent energy intake r/t current schedule impacting eating times aeb diet recall - improved/ in progress Physical inactivity r/t limited time for activity and avoiding going outside d/t allergies aeb pt report - improved/in progress Nutrition and food related knowledge deficit r/t needing more ideas around easy breakfasts aeb pt report- new Intervention: This participant was very receptive. Provided appropriate educational handouts. Discussed the following topics: Meal timing, pairing macros and portions Easy breakfast ideas Physical activity Personal goals for nutrition and PA Motivation for health changes Goals: Incorporate breakfast- new Try to eat small freq meals q 3-4 hours - in progress Keep CHo to 1c at meals ? in progress Restart home workouts- d/c Pre-prep breakfast-- Breakfast muffins, yogurt with fruit- new Eat more frequently- new Start the gym- new Follow-up: BRISSA SWARTZ follow-up 1 month Tiny Shabazz RDN, [facility] P: [phone] Thank you for this referral
== END ==
LOC: DIET 11:04
PROVIDERS: Referring Provider Nurse Practitioner Family
DX: E78.5 Hyperlipidemia, unspecified (principal); Z86.32 Personal history of gestational diabetes; Z71.3 Dietary counseling and surveillance
CPT/HCPCS: 97803

== ENCOUNTER 2024-12-01 22:08 | Emergency (ER) | payer OTHER, SELFPAY ==
[2024-12-01 22:25] VITALS: BP 125/73; PULSE 90; RESP 18; TEMP 37.2; O2SAT 98; BMI 48.7
--- NOTE | 2024-12-01 22:34 | DI.RAD.S_ITS ---
PROCEDURE: XR KNEE RT 3V INDICATIONS: fall on concrete TECHNIQUE: 3 views of the knee were acquired. COMPARISON: None. FINDINGS: Bones: No fractures or dislocations. No suspicious bony lesions. Soft tissues: Trace joint effusion. No suspicious soft tissue calcifications. No radiopaque foreign body. IMPRESSION: No acute osseous abnormality. Dictated by: Jhonny Robert M.D. on 12/02/2024 at 0:12 Approved by: Jhonny Robert M.D. on 12/02/2024 at 0:13
--- NOTE | 2024-12-02 01:29 | ED.FALL ---
HPI - Fall General Chief Complaint: Fall Stated Complaint: Fall/trip, rt knee injury Time Seen by Provider: 12/02/24 01:03 Source: patient Mode of arrival: Ambulatory History of Present Illness HPI Narrative: 28-year-old female tripped and fell earlier this afternoon, sustained injury to her right knee, small laceration. Hurts to bend her knee. No gross knee effusion. Did not hit her head. Did not have loss of consciousness. Denies nausea or vomiting. Denies focal weakness to face arm or leg. Denies focal numbness to face arm or leg. Denies chest abdomen and pelvis pain. Denies pain to her upper extremities, neck, upper mid lower back. Related Data Home Medications ?Medication ?Instructions ?Recorded ?Confirmed epinephrine 0.3 mg/0.3 mL 0.3 mg IM DIRECTED 12/01/24 12/01/24 injection, auto-injector loratadine 10 mg tablet 10 mg PO DAILY 12/01/24 12/01/24 montelukast 10 mg tablet 10 mg PO DAILY 12/01/24 12/01/24 Allergies Allergy/AdvReac Type Severity Reaction Status Date / Time pineapple Allergy Intermediate Swelling Verified 11/22/23 08:05 of Lip/Tongue/Throat Patient History Medical History (Updated 12/02/24 @ 02:26 by Reim Grayson MD) History of gestational diabetes Allergies Anxiety Hypothyroidism Migraine without aura Eczema Environmental allergies Surgical History [place] teeth extracted (~2021) Family History Father Diabetes mellitus Mother Anemia Obesity Cardiac anomaly Grandmother Diabetes mellitus Sister Cerebral palsy Social History marital status: number of children: 1 household members: spouse and children lives independently: Yes caregiver/support person: Yes housing: condominium pets and animals: Yes (dog) education level: high school occupational status: employed current occupational exposures/hazards: No special nicole needs: No travel history: recent seatbelt use: always water heater temp set < 120 deg: Yes working smoke detector in home: Yes fire extinguisher in home: No carbon monox detector in home: Yes firearms in home: Yes firearms unloaded and locked: Yes do you feel safe at home: Yes Smoking Status: Never smoker second hand exposure: No alcohol intake: former substance use type: does not use during the past year weight has: decreased > 10 lbs well-balanced diet: about half the time daily servings fruits/ve-4 caffeine: Yes (occasional te) Type(s) of exercise: aerobic and weight lifting Smoking Status: Never smoker alcohol intake frequency: a few times a month Exam Narrative Exam Narrative: GENERAL: Well-developed patient, in mild distress. HEAD: Atraumatic. Normocephalic. EYES: Pupils equal round and reactive. Extraocular motions intact. No scleral icterus. No injection or drainage. ENT: Nose without bleeding, purulent drainage. Throat without erythema, tonsillar hypertrophy or exudate. Airway patent. NECK: Trachea midline. Non tender CARDIOVASCULAR: Regular rate and rhythm without murmurs, gallops, or rubs. RESPIRATORY: Clear to auscultation. Breath sounds equal bilaterally. No wheezes, rales, or rhonchi. GASTROINTESTINAL: Abdomen soft, non-tender, nondistended. EXTREMITIES: Right anterior knee prepatellar tendon skin laceration. Full extension. No visible tendon structures. BACK: Nontender without deformity or crepitance. No flank tenderness. NEURO: AOx3. Motor functions grossly nonfocal. SKIN: No rash or erythema of visible areas Initial Vital Signs Initial Vital Signs: Vital Signs Temperature 99 F 12/01/24 22:25 Pulse Rate 90 12/01/24 22:25 Respiratory Rate 18 12/01/24 22:25 Blood Pressure 125/73 12/01/24 22:25 Pulse Oximetry 98 12/01/24 22:25 Oxygen Delivery Method Room Air 12/01/24 22:25 Procedures Laceration Repair Laceration 1: Time of procedure: : Site: lower extremity (right anterior knee) Side (If applicable): right Size (cm): 0.75 Description: flap Depth: simple, single layer Local Anesthetic: lidocaine 1% Amount of anesthesia used (mL): 1 Skin layer closed with: nylon Skin layer suture size: 4-0 Number of sutures: 1 Laceration 2: Time of procedure: Site: lower extremity (right knee) Side (If applicable): right Size (cm): 2.5 Description: linear Depth: simple, single layer Local Anesthetic: lidocaine 1% and with epi Amount of anesthesia used (mL): 4 Skin layer suture size: 3-0 Number of sutures: 6 Technique: simple, interrupted Course Orders Ordered: Discontinued Medications Bacitracin (Bacitracin Oint 0.9 Gm Pckt) 1 applic TOP NOW ONE Stop: 12/02/24 02:21 Bacitracin (Bacitracin Oint 0.9 Gm Pckt) 1 applic TOP NOW ONE Stop: 12/02/24 02:27 Last Admin: 12/02/24 02:30 Dose: 1 applic Documented By: REJI Cefazolin Sodium (Cephalexin 250 Mg Cap Prepack) 1 bottle MISC DIRECTED ONE Stop: 12/02/24 02:24 Last Admin: 12/02/24 02:30 Dose: 500 mg Documented By: REJI Cephalexin HCl (Cephalexin 250 Mg Capsule) 500 mg PO NOW ONE Stop: 12/02/24 02:24 Last Admin: 12/02/24 02:30 Dose: 500 mg Documented By: REJI Lidocaine/Epinephrine (Lidocaine 1% W/Epi 10ml) 4 ml INJ INTRA-OP ONE Stop: 12/02/24 01:34 Last Admin: 12/02/24 01:36 Dose: 4 ml Documented By: REJI Vital Signs Vital signs: Vital Signs - 8 hr 12/02/24 02:55 Oxygen Delivery Method Room Air MDM - Fall Imaging Data Right knee x-ray series: Radiologist's Impression: [address] [id number] XRay Report Signed Patient: Jeane Encarnacion MR#: [id number] : 1995 Acct:[id number] Age/Sex: 28 / F Date of Service: 12/01/24 Loc: ED Accession Number: [id number] Procedure: XR knee RT 3V Ordering Provider: Remi Grayson MD PROCEDURE: XR KNEE RT 3V INDICATIONS: fall on concrete TECHNIQUE: 3 views of the knee were acquired. COMPARISON: None. FINDINGS: Bones: No fractures or dislocations. No suspicious bony lesions. Soft tissues: Trace joint effusion. No suspicious soft tissue calcifications. No radiopaque foreign body. IMPRESSION: No acute osseous abnormality. Dictated by: Jhonny Robert M.D. on 12/02/2024 at 0:12 Approved by: Jhonny Robert M.D. on 12/02/2024 at 0:13 MDM Narrative Medical decision making narrative: Ground level fall right knee pain abrasion, gravel debris, small horizontal laceration. XRay knee negative for fracture/FB. See lac repair note. Post repair placed into knee immobilizer, with crutches. Wound check advised 2d, DC home with family, return precautions discussed. Discharge Plan Departure Patient Disposition: Home Clinical Impression: Laceration of right knee, Contusion of right knee Activity Restrictions/Additional Instructions: Ground level fall with right knee pain, laceration, and small punctum abrasions, gravelly like, it is possible to have retained foreign bodies in the small little puncture areas. Small flap laceration was repaired with single stitch. Larger horizontal laceration was repaired with multiple stitches. Wound is at risk for infection as there might be some micro foreign body material despite wound care cleansing. Oral antibiotic cephalexin started, home pack of cephalexin provided to take 250 mg capsules, 2 capsules 4 times daily for the next few days. Advised wound check in the next couple of days with your regular doctor in clinic. Nonweightbearing on the right knee with use of knee immobilizer until wound check. Take Tylenol and or Motrin as needed for pain control. Return to this/nearest emergency department for any change worsening symptoms or any concerns prior. Prescriptions: No Action montelukast 10 mg tablet 10 mg PO DAILY epinephrine 0.3 mg/0.3 mL auto-injector 0.3 mg IM DIRECTED loratadine 10 mg tablet 10 mg PO DAILY Referrals: ProviderAnisha [Primary Care Provider, Family Practice] Stand Alone Forms: Patient Portal/API
[2024-12-02] MEDS: LIDOCAINE 1% W/EPI 10ML 4 ML INJ (01:36)
[2024-12-02] MEDS: BACITRACIN OINT 0.9 GM PCKT 1 APPLIC TOP (02:30)
== END 2024-12-02 02:58 | disposition home or self-care (01) ==
PROVIDERS: Emergency Provider Emergency Medicine
DX: S81.011A Laceration without foreign body, right knee, initial encounter (principal); W01.0XXA Fall on same level from slipping, tripping and stumbling without subsequent striking against object, initial encounter
CPT/HCPCS: 12002; 73562; 99283